=== PATIENT | female | born 2000 | race Caucasian/White ===

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

== ENCOUNTER → 2021-01-05 12:04 | Outpatient (BNVA) | payer OTHER, MEDICAID, SELFPAY | PROVIDERS: PCP Pediatrics; Visit Provider Obstetrics & Gynecology ==

== ENCOUNTER 2021-03-18 19:03 | Emergency (ER) | payer OTHER, MEDICAID, SELFPAY ==
[2021-03-18 19:17] VITALS: BP 119/60; PULSE 81; RESP 16; TEMP 37; O2SAT 100; BMI 26.0
== END 2021-03-18 21:36 | disposition left against medical advice (07) ==
PROVIDERS: Emergency Provider Emergency Medicine; PCP Pediatrics
DX: R10.11 Right upper quadrant pain (principal); N93.9 Abnormal uterine and vaginal bleeding, unspecified
CPT/HCPCS: 99281; 99282

== ENCOUNTER 2021-03-19 09:02 | Emergency (ER) | payer OTHER, MEDICAID, SELFPAY ==
[2021-03-19 09:58] VITALS: BP 106/60; PULSE 66; RESP 14; TEMP 36.4; O2SAT 100; BMI 26.0
--- NOTE | 2021-03-19 10:37 | ED_ITS ---
HPI - Abdominal Pain General Chief Complaint: Abdominal Pain Stated Complaint: pain on left side Time Seen by Provider: 03/19/21 10:37 Source: patient Mode of arrival: ambulatory Limitations: no limitations History of Present Illness HPI narrative: Patient noticed pain in the right flank area for last 2 days since yesterday noticed vaginal bleeding her last menstrual period was 2 weeks ago denies any pelvic pain no urinary complaints no fever or chills no history of kidney stone Related Data Previous Rx's Medication Instructions Recorded metronidazole 500 mg tablet 500 mg PO BID 7 Days #14 tab 12/31/20 Allergies Allergy/AdvReac Type Severity Reaction Status Date / Time No Known Allergies Allergy Unverified 01/05/21 12:05 [No Known Allergies*] Review of Systems Review of Systems Constitutional : No Weight loss, No Fever, No Chills ENT/Mouth : No sore throat, No Rhinorrhea Eyes: No Eye Pain, No Swelling Cardiovascular : No Chest Pain, no palpitations Respiratory : No Cough, No Sputum, no shortness of breath Gastrointestinal : no Nausea, No Vomiting, No Diarrhea, No abdominal Pain, no black stools Genitourinary : No Dysuria, No Urinary Frequency Musculoskeletal : No joint pain, No Myalgias, No Joint Swelling Skin : No Skin Lesions, No rash Neuro : No Weakness, No Numbness, No Dizziness, No Headache Psych : No Anxiety/Panic, No Depression Heme/Lymph: No Bruising, No Lymphadenopathy Endocrine : No Polyuria, No Polydipsia All other systems reviewed and are negative Physical Exam Vital Signs: Vital Signs: Last Vital Signs Temp 97.5 F 03/19/21 09:58 Pulse 66 03/19/21 09:58 Resp 14 03/19/21 09:58 BP 106/60 03/19/21 09:58 Pulse Ox 100 03/19/21 09:58 Body Mass Index 26.0 Appearance: Alert. Oriented X3. No acute distress. Eyes: PERRLA, No Nystagmus ENT: Pharynx normal. Oral Mucosa moist Neck: Normal inspection. Neck supple. CVS: Normal heart rate and rhythm. Pulses normal. Respiratory: No respiratory distress. Equal air entry bilateral, no wheezing/rales/rhonchi Abdomen: Soft and nontender. Bowel sounds are present, no mass palpable, mild right CVA tenderness Skin: Skin warm and dry. Normal skin color. Normal skin turgor. Extremities: No lower extremity edema. No calf tenderness Neuro: Oriented X 3. No motor deficit. No sensory deficit.No cerebellar signs , cranial nerves II-XII intact MDM - Abdominal Pain MDM Narrative Medical decision making narrative: Patient nonspecific mild right flank pain eating fine in the ER urine negative except for your few wbc's nitrite negative discharge patient home likely musculoskeletal Lab Data Attestation: I reviewed the patient's lab results. Labs: Lab Results 03/19/21 03/19/21 Range/Units 11:46 11:46 Urine Color YELLOW Urine Appearance HAZY Urine pH 6.0 (5.0-8.0) Ur Specific [place] >= 1.030 H (1.005-1.025) Urine Protein NEG (NEG-TRACE) MG/DL Urine Glucose (UA) NEG (NEG) MG/DL Urine Ketones NEG (NEG) MG/DL Urine Blood NEG (NEG) Urine Nitrite NEG (NEG) Ur Leukocyte Esterase 1+ H (NEG) Urine RBC 0 (0) /HPF Urine WBC 1-4 (0-4) /HPF Ur Squamous Epith Cells 2+ /LPF Urine Bacteria 1+ /LPF Urine Mucus 2+ /LPF Urine Test NEGATIVE (NEGATIVE) Discharge Plan Discharge Prescriptions: No Action metronidazole [Flagyl] 500 mg tablet 500 mg PO BID 7 Days Qty: 14 RF: 0 PMFSH Social History Social History Alcohol intake: never Smoking Status: Never smoker Advance Directives: Yes Advance Directives Information Provided: No Advance Directives on File: No Patient : No Gender identity: female
[2021-03-19 11:54] LABS: Glucose Urine UA NEG (NEG); Leukocyte Esterase Urine 1+ (NEG); Nitrite Urine NEG (NEG); Specific Gravity - Urine >= 1.030 (1.005-1.025); UACC Culture Trigger YES; Urine Blood NEG (NEG); Urine Ketones NEG (NEG); Urine Protein NEG (NEG-TRACE)
[2021-03-19 11:55] LABS: Appearance Urine HAZY; Color Urine YELLOW
[2021-03-19 11:56] LABS: UPreg QC Valid YES; Urine Pregnancy NEGATIVE (NEGATIVE)
[2021-03-19 12:03] LABS: Bacteria Urine 1+ /LPF; Mucus Urine 2+ /LPF; RBC Urine 0 /HPF (0); Squamous Epithelial Cell Urine 2+ /LPF
== END 2021-03-19 13:11 | disposition home or self-care (01) ==
PROVIDERS: Emergency Provider Internal Medicine; PCP Pediatrics
DX: R10.9 Unspecified abdominal pain (principal); Z79.899 Other long term (current) drug therapy
CPT/HCPCS: 81001; 81003; 81025; 87086; 99284

== ENCOUNTER → 2021-04-15 08:57 | Outpatient (BNVA) | payer OTHER, MEDICAID, SELFPAY | PROVIDERS: Visit Provider Advanced Practice Midwife | DX: Z32.01 Encounter for pregnancy test, result positive (principal) | CPT/HCPCS: 81025; 99212 ==

== ENCOUNTER 2021-05-04 23:16 | Observation (INO) | payer OTHER, MEDICAID, SELFPAY ==
--- NOTE | ~2021-05-04 | US_ITS ---
EXAMINATION: US OBSTETRICAL ULTRASOUND CLINICAL INFORMATION: 8 weeks . Left lower quadrant pain. Rule out ectopic. COMPARISON: None. LMP: 02/06/2021. Gestational age by maternal dates is 12 weeks 4 days. Estimated date of delivery by maternal dates is 11/13/2021. TECHNIQUE: Transabdominal sonographic evaluation of the pelvis. FINDINGS: There is a single intrauterine gestational sac with visible yolk sac, embryo/fetus, and cardiac activity. There is no significant subchorionic hemorrhage or hematoma. HR: 163 beats per minute. CRL (crown rump length): 1.78 cm (8 weeks 2 days +/- 4 days). ANDREW (estimated date of delivery): 12/13/2021 +/- 4 days. MATERNAL ADNEXA: The right maternal ovary measures 1.9 x 1.6 x 1.4 cm. The left maternal ovary measures 2.5 x 1.7 x 2.1 cm. There is no significant maternal adnexal mass. No maternal pelvic ascites. US/US OB <= 14 weeks fetus IMPRESSION: 1. Single intrauterine gestation with ultrasound gestational age of 8 weeks 2 days +/- 4 days. 2. Estimated date of delivery is 12/13/2021 +/- 4 days. 3. No maternal adnexal mass or pelvic ascites.
[2021-05-04 23:17] VITALS: BP 106/57; PULSE 78; RESP 18; TEMP 37.1; O2SAT 100; BMI 26.4
[2021-05-04 23:33] LABS: Glucose Urine UA NEG (NEG); Leukocyte Esterase Urine 1+ (NEG); Nitrite Urine NEG (NEG); Specific Gravity - Urine 1.015 (1.005-1.025); UACC Culture Trigger YES; Urine Blood TRACE (NEG); Urine Ketones 15 MG/DL (NEG); Urine Protein NEG (NEG-TRACE)
[2021-05-04 23:34] LABS: Appearance Urine CLEAR; Color Urine YELLOW
[2021-05-04 23:39] LABS: Bacteria Urine TRACE /LPF; Mucus Urine 1+ /LPF; Squamous Epithelial Cell Urine 2+ /LPF; WBC Urine 0-2 /HPF (0-4)
--- NOTE | 2021-05-05 01:03 | ED.GENADULT ---
HPI - General Adult General Chief complaint: Nausea/Vomiting/Diarrhea Stated complaint: Vomiting Time Seen by Provider: 05/05/21 00:47 Source: patient Mode of arrival: ambulatory Limitations: no limitations History of Present Illness HPI narrative: 20-year-old female, G1, P0, LMP 02/06/2021, EDC 12/13/2021 of pain and she points to her left lower quadrant when asked to localize the pain. She describes the pain as a constant, pounding sensation which is 8/10 at its worst. She denied fever, chills, chest pain, shortness of breath, frequency, urgency or dysuria. She denies vaginal bleeding or vaginal discharge. She states she did have 1 OBGYN appointment at [facility] and she was told that her due date was 12/13/2021 which would make her 8 weeks however based on her LMP of 02/06/2021 she would be 12 weeks . Patient states that she was seen at [facility] yesterday but did not have any testing. She states that she did take her mother's Zofran translingually today with no relief of her symptoms. Related Data Previous Rx's Medication Instructions Recorded ibuprofen 600 mg PO Q6H PRN #20 tab 03/19/21 [id number] acid-B6 1 ea PO . daily 90 Days #90 ea 05/05/21 [Citranatal B-Calm (Fe Gluc)] promethazine 25 mg KS Q6H PRN #20 ea 05/05/21 Allergies Allergy/AdvReac Type Severity Reaction Status Date / Time No Known Allergies Allergy Verified 05/04/21 23:17 [No Known Allergies*] Review of Systems Review of Systems: Yes all other systems are reviewed and are negative Neurologic: Reports Abnormal speech present [facility] Past Medical History [facility] Narrative: Past medical history: Low blood pressure. Past surgical history: None. Social history: Patient denies tobacco, alcohol and drug use. Social History Social History (Updated 04/15/21 @ 09:05 by Chantel Juarez [facility]) Alcohol intake: never Patient Tobacco Use Status: Never used Tobacco Advance Directives: No Advance Directives Information Provided: No Patient : Yes Gender identity: female Physical Exam Vital Signs: Vital Signs: Last Vital Signs Temp 98.7 F 05/04/21 23:17 Pulse 78 05/04/21 23:17 Resp 18 05/04/21 23:17 BP 106/57 L 05/04/21 23:17 Pulse Ox 100 05/04/21 23:17 Body Mass Index 26.4 Const: Other: Very pleasant and cooperative female, she does not appear to be in any distress, she answers all questions appropriately. HENMT: Head: Yes normal to inspection, Yes normocephalic and Yes atraumatic Ears: external ears normal General nose exam: Normal external nose present Face and sinus: Yes normal facial exam Mouth: Normal oral and palatal mucosa present Throat: Yes posterior oropharynx normal Eyes: Periorbital: periorbital findings normal Eyelids: Yes eyelids normal Conjunctivae: conjunctivae normal Sclerae: sclerae normal Corneas: corneas normal Pupils: Equal, round and reactive pupils present Direct Ophthalmoscopy: normal light reflex Neck: Neck: Yes full ROM, Yes no lymphadenopathy, Yes no meningeal signs, Yes trachea midline and Yes supple Chest: Chest palpation & inspection: normal inspection of the chest and normal palpation of entire chest wall Resp: Effort & Inspection: normal respiratory effort and able to speak in complete sentences Auscultation: clear to auscultation bilaterally Cardio: Rate: regular rate Rhythm: regular rhythm Heart sounds: S1 normal heart sound present, S2 normal heart sound present and no murmurs GI: Inspection: Yes normal to inspection Palpation (GI): Soft to palpation, nontender, no guarding, not rigid and No hepatosplenomegaly present : General: Yes no CVA tenderness Back/Spine/Pelvis: Back: no CVA tenderness Cervical Spine: normal cervical lordosis Thoracic/Lumbar Spine: thoracic and lumbar spine normal to inspection Skin: Lesions: no lesions Rashes: no rashes Wounds: no wounds Neuro: General: no meningeal signs Cranial nerves: Yes Equal, round and reactive pupils present Cognition (Neuro): normal cognition Speech: Abnormal speech present Motor exam (neuro): 5/5 motor strength present throughout Extrem: General: Yes normal to inspection and Yes full ROM Psych: Appearance: well kempt Mental Status: mental status grossly normal Speech and movement: Normal speech and movement present Affect: normal affect Attitude: cooperative Thought process: Normal thought process present Thought content: Normal thought content present Course Course Course Narrative: 20-year-old female who was 8-12 weeks who presents emergency department for evaluation 2 weeks nausea and vomiting with 20 episodes of emesis per day and left lower quadrant abdominal pain. Physical examination did reveal left lower quadrant tenderness otherwise was unremarkable. I ordered a CBC, CMP, quantitative beta HCG, urinalysis, ABO. Patient was ordered to get Reglan 10 mg IV, Benadryl 25 mg IV and normal saline x1 L. 0214: The patient only got minimal relief of her nausea with the 1st L of normal saline IV, Reglan and Benadryl IV. Therefore I ordered Phenergan 12.5 mg IV and a 2nd L of normal saline IV. Her laboratory evaluation revealed a normocytic anemia with an H&H of 11.3 and 31.8 .LFTs were normal. Urinalysis was unremarkable. Blood type was O-positive Quantitative beta-hCG is pending and her pelvic ultrasound studies are pending. At the end of my shift, patient's care was turned over to my colleague, Dr. Anat Rocha. Medical Decision Making Lab Data Result diagrams: 05/05/21 01:18 05/05/21 01:18 Labs: Lab Results 05/04/21 05/05/21 05/05/21 Range/Units 23:24 01:18 01:18 WBC 6.6 (4.8-10.8) X10*3/uL RBC 3.57 L (4.20-5.50) X10*6/uL Hgb 11.3 L (12.0-16.0) g/dl Hct 31.8 L (37-47) % MCV 89.1 (80-98) fL MCH 31.7 (27.0-33.0) pg MCHC 35.5 H (31.0-35.0) g/dl RDW 11.9 (11.0-16.0) % Plt Count 209 (160-400) X10*3/uL MPV 8.7 L (9.4-12.3) fL Immature Gran % (Auto) 0.3 (0.0-0.4) % Neut % (Auto) 75.0 H (45-73) % Lymph % (Auto) 12.0 L (20-40) % Smith % (Auto) 11.0 (2-11) % Eos % (Auto) 1.5 (0-4) % Baso % (Auto) 0.2 (0-2) % Lymph # (Auto) 0.8 L (1.2-4.9) X10*3/uL Smith # (Auto) 0.7 (0.1-1.2) X10*3/uL Eos # (Auto) 0.1 (0.0-0.4) X10*3/uL Baso # (Auto) 0.0 (0.0-0.2) X10*3/uL Abs Immat Gran (auto) 0.02 (0.00-0.03) X10*3/uL Absolute Neuts (auto) 5.0 (2.0-8.3) X10*3/uL Absolute Nucleated RBC 0.000 (0.0-0.012) X10*3/uL Nucleated RBC % (auto) 0.0 (0.0-0.2) /100WBC Sodium 139 (135-145) mmol/L Potassium 4.1 (3.3-5.1) mmol/L Chloride 107 (96-108) mmol/L Carbon Dioxide 21 L (22-29) mmol/L Anion Gap 15 (12-20) BUN 9 (9-16) mg/dL Creatinine 0.77 (0.5-1.4) mg/dL Estim Creat Clear Calc 100.3 Estimated GFR > 60 Random Glucose 82 (60-115) mg/dL Calcium 9.2 (8.4-10.2) mg/dL Total Bilirubin 0.6 (0.0-1.0) mg/dL AST 25 (5-31) U/L ALT 31 (0-31) U/L Alkaline Phosphatase 60 (39-117) U/L Total Protein 6.8 (6.5-8.0) g/dL Albumin 4.1 (3.5-5.0) g/dL Lipase 20 (8-78) U/L Urine Color YELLOW Urine Appearance CLEAR Urine pH 6.0 (5.0-8.0) Ur Specific [place] 1.015 (1.005-1.025) Urine Protein NEG (NEG-TRACE) MG/DL Urine Glucose (UA) NEG (NEG) MG/DL Urine Ketones 15 (NEG) MG/DL Urine Blood TRACE (NEG) Urine Nitrite NEG (NEG) Ur Leukocyte Esterase 1+ H (NEG) Urine RBC 1-4 (0) /HPF Urine WBC 0-2 (0-4) /HPF Ur Squamous Epith Cells 2+ /LPF Urine Bacteria TRACE /LPF Urine Mucus 1+ /LPF Blood Type 05/05/21 Range/Units 01:18 WBC (4.8-10.8) X10*3/uL RBC (4.20-5.50) X10*6/uL Hgb (12.0-16.0) g/dl Hct (37-47) % MCV (80-98) fL MCH (27.0-33.0) pg MCHC (31.0-35.0) g/dl RDW (11.0-16.0) % Plt Count (160-400) X10*3/uL MPV (9.4-12.3) fL Immature Gran % (Auto) (0.0-0.4) % Neut % (Auto) (45-73) % Lymph % (Auto) (20-40) % Smith % (Auto) (2-11) % Eos % (Auto) (0-4) % Baso % (Auto) (0-2) % Lymph # (Auto) (1.2-4.9) X10*3/uL Smith # (Auto) (0.1-1.2) X10*3/uL Eos # (Auto) (0.0-0.4) X10*3/uL Baso # (Auto) (0.0-0.2) X10*3/uL Abs Immat Gran (auto) (0.00-0.03) X10*3/uL Absolute Neuts (auto) (2.0-8.3) X10*3/uL Absolute Nucleated RBC (0.0-0.012) X10*3/uL Nucleated RBC % (auto) (0.0-0.2) /100WBC Sodium (135-145) mmol/L Potassium (3.3-5.1) mmol/L Chloride (96-108) mmol/L Carbon Dioxide (22-29) mmol/L Anion Gap (12-20) BUN (9-16) mg/dL Creatinine (0.5-1.4) mg/dL Estim Creat Clear Calc Estimated GFR Random Glucose (60-115) mg/dL Calcium (8.4-10.2) mg/dL Total Bilirubin (0.0-1.0) mg/dL AST (5-31) U/L ALT (0-31) U/L Alkaline Phosphatase (39-117) U/L Total Protein (6.5-8.0) g/dL Albumin (3.5-5.0) g/dL Lipase (8-78) U/L Urine Color Urine Appearance Urine pH (5.0-8.0) Ur Specific [place] (1.005-1.025) Urine Protein (NEG-TRACE) MG/DL Urine Glucose (UA) (NEG) MG/DL Urine Ketones (NEG) MG/DL Urine Blood (NEG) Urine Nitrite (NEG) Ur Leukocyte Esterase (NEG) Urine RBC (0) /HPF Urine WBC (0-4) /HPF Ur Squamous Epith Cells /LPF Urine Bacteria /LPF Urine Mucus /LPF Blood Type O Positive Discharge Plan Discharge Clinical Impression: Excessive vomiting Abdominal pain during Qualifiers: Trimester: first trimester Qualified Code(s): O26.891 - Other specified related conditions, first trimester Patient Disposition: Home, Self-Care Instructions: Hyperemesis Gravidarum (ED) Additional Instructions: Use Phenergan suppositories 25 mg, 1 suppository per rectum every 6 hours as needed for nausea and vomiting. Take vitamins daily. Follow-up with your OBGYN doctor in 2 days. Please return to the emergency department if your symptoms get worse or if you develop any symptoms that are concerning to you. Prescriptions: New promethazine 25 mg suppository 25 mg KS Q6H PRN (Reason: nausea and vomiting) Qty: 20 RF: 0 Citranatal B-Calm (Fe Gluc) 20 mg iron-1 mg -25 mg/25 mg tablets, sequential 1 ea PO . daily 90 Days Qty: 90 RF: 0 No Action ibuprofen 600 mg tablet 600 mg PO Q6H PRN (Reason: pain) Qty: 20 RF: 0
[2021-05-05 01:25] LABS: MANUAL DIFF FLAG NO
[2021-05-05] MEDS: diphenhydrAMINE HCL 50 MG/ML VIAL 25 MG IVPUSH (01:28)
[2021-05-05] MEDS: 0.9 % Sodium Chloride 1,000 ML 999 ML IV ×2 (01:28→02:19)
[2021-05-05 01:30] LABS: Basophils Percent Auto 0.2 % (0-2); Eosinophils Absolute Auto 0.1 X10*3/uL (0.0-0.4); Eosinophils Percent Auto 1.5 % (0-4); Hematocrit 31.8 % (37-47); Hemoglobin 11.3 g/dl (12.0-16.0); Imm Gran Abs Auto 0.02 X10*3/uL (0.00-0.03); Imm Gran Pct Auto 0.3 % (0.0-0.4); Lymphocytes Absolute Auto 0.8 X10*3/uL (1.2-4.9); Mean Corpuscular HGB Conc 35.5 g/dl (31.0-35.0); Mean Corpuscular Hemoglobin 31.7 pg (27.0-33.0); Mean Corpuscular Volume 89.1 fL (80-98); Mean Platelet Volume 8.7 fL (9.4-12.3); Monocytes Absolute Auto 0.7 X10*3/uL (0.1-1.2); Platelet Count 209 X10*3/uL (160-400); Red Blood Count 3.57 X10*6/uL (4.20-5.50); Red Cell Distribution Width 11.9 % (11.0-16.0); White Blood Count 6.6 X10*3/uL (4.8-10.8)
[2021-05-05] MEDS: Metoclopramide HCl 10 MG/2 ML VIAL IVPUSH ×2 (01:30→15:48)
[2021-05-05 01:47] LABS: Alanine Aminotransferase 31 U/L (0-31); Albumin Level 4.1 g/dL (3.5-5.0); Alkaline Phosphatase 60 U/L (39-117); Anion Gap 15 (12-20); Aspartate Amino Transferase 25 U/L (5-31); Bilirubin Total 0.6 mg/dL (0.0-1.0); Blood Urea Nitrogen 9 mg/dL (9-16); Calcium 9.2 mg/dL (8.4-10.2); Carbon Dioxide 21 mmol/L (22-29); Chloride 107 mmol/L (96-108); Creatinine Clr Calc Pharmacy 100.3; Estimated Glomerular Filt Rate > 60; Glucose Random 82 mg/dL (60-115); Lipase 20 U/L (8-78); Potassium 4.1 mmol/L (3.3-5.1); Sodium 139 mmol/L (135-145); Total Protein 6.8 g/dL (6.5-8.0)
[2021-05-05] MEDS: ondansetron HCL 4 MG/2 ML VIAL IVPUSH ×3 (05:20→21:19)
[2021-05-05] MEDS: Nitrofurantoin Monohyd/M-Cryst 100 MG CAPSULE PO (05:21)
--- NOTE | 2021-05-05 05:45 | PC.NURSE ---
pt failed PO challenge. MD notified plan of care is to admit patient pt aware of plan of care for admission. no questions or concerns at this time.
[2021-05-05] MEDS: cefTRIAXone sodium 1 GM in 0.9 % Sodium Chloride 50 ML IV (05:49)
[2021-05-05 06:35] VITALS: BP 115/69; PULSE 66; RESP 14; O2SAT 98
[2021-05-05 07:05] LABS: COVID-19 Test Negative (Negative); IDNOW Serial# 9DD0AD1C
[2021-05-05 08:00] VITALS: BP 107/55; PULSE 63; RESP 16; O2SAT 99
--- NOTE | 2021-05-05 09:22 | PC.NURSE ---
PT SEEN BY HOSPITALIST, HOW REPORTED PT HAD VOMITED, AND IV WAS BOTHERING HER. IV CHECKED FLUSHES WELL WITH NO PAIN, AND HAS A SMALL BLOOD RETURN. PT WAS COMFORTABLE WITH KEEPING IT IT WAS AND EASY FLUSH WITH NO DISCOMFORT.
--- NOTE | 2021-05-05 09:31 | P.HPHOSP_ITS ---
History of Present Illness Date of Service: 05/05/21 Chief Complaint: nausea and vomiting This 20 yo F (reports LMP 02/06 -- but OB note from 04/15 documents 03/08) who presents to the hospital with complaints of bilateral lower quadrant pain and vomiting. She reports that over the last several days she has had nausea with vomiting (non-bloody/non-bilious) with subsequent abdominal soreness. She denies any fevers or chills. She denies any diarrhea. She endorses that no one else has similar symptoms. She denies any vaginal bleeding or discharge. She denies any urinary frequency /urgency. Denies any dysuria. She denies any marijuana use. She reports that she is getting her Ob care at [facility] [place]. In the ED, she underwent basic work up including cbc, bmp, ua, ultrasound. Her CBC revealed mild anemia, her chem was basically within normal limits. UA showed trace bacteria. Her ultrasound revealed a single intrauterine with EGA 8weeks 2 days +/- 4 days. ANDREW by ultrasound was 12/13/2021 +/- 4 days. She was given multiple rounds to antiemetics and IVF without improvement in her symptoms. She failed her PO challenged and will be subsequently admitted for further management. Review of Systems Review of Systems: General - denies fevers or chills, denies weakness or fatigue HEENT -denies blurred vision, denies headache, denies sore throat Cardiovascular - denies chest pain or palpitations, denies edema Respiratory - denies shortness of breath, coughing, wheezing Gastrointestinal - +nausea/vomiting, denies diarrhea - denies flank pain, denies dysuria, denies frequency or urgency Musculoskeletal - denies back pain, denies hip pain, denies knee pain, denies shoulder pain Neurological - denies any focal weakness or numbness Skin, denies any bruising or redness Psychiatric - denies any suicidal ideation, hallucinations, homicidal ideation Endocrinology - denies intolerance to hot / cold temperatures [facility] Social History (Updated 04/15/21 @ 09:05 by Chantel Juarez, [facility]) Alcohol intake: never Patient Tobacco Use Status: Never used Tobacco Advance Directives: No Advance Directives Information Provided: No Patient : Yes Gender identity: female Meds Allergies Allergy/AdvReac Type Severity Reaction Status Date / Time No Known Allergies Allergy Verified 05/04/21 23:17 [No Known Allergies*] Active Medications: Current Medications Generic Name Dose Route Start Last Admin Trade Name Freq PRN Reason Stop Dose Admin Dextrose/Sodium Chloride 1,000 mls @ 100 mls/hr 05/05/21 09:30 D51/2ns IVCONT .Q10H LUIS ALFREDO Ondansetron HCl 4 mg 05/05/21 09:25 Ondansetron Hcl 4 Mg/2 Ml Vial IVPUSH Q8H PRN Nausea and Vomiting Sodium Chloride 3 ml 05/05/21 16:00 0.9 % Sodium Chloride Flush 3 Ml Syringe IVFLUSH QSHIFT LUIS ALFREDO Physical Exam Vital Signs and Narrative: Vital Signs: Last Vital Signs Temp 98.7 F 05/04/21 23:17 Pulse 63 05/05/21 08:00 Resp 16 05/05/21 08:00 BP 107/55 L 05/05/21 08:00 Pulse Ox 99 05/05/21 08:00 Body Mass Index 26.4 Const: Other: Constitutional - Awake and Alert, No apparent distress Eyes - PERRLA, EOMI Cardiovascular - S1S2, RRR, No edema Respiratory - Normal lung expansion, Normal respiratory effort, No respiratory distress, CTA bilaterally Gastrointestinal - NT / ND; +BS; No rebound or guarding - No CVA tenderness Extremities - no calf tenderness bilaterally, no swelling Musculoskeletal - Normal inspection, normal ROM Skin - Warm/Dry Neurological - Alert & oriented x3, No focal deficit Psychological - Appropriate affect Results Labs CBC and Chem 7: 05/05/21 01:18 05/05/21 01:18 Labs: Laboratory Results - last 24 hr 05/04/21 05/05/21 05/05/21 23:24 01:18 01:18 MCV 89.1 MCH 31.7 MCHC 35.5 H RDW 11.9 Plt Count 209 MPV 8.7 L Immature Gran % (Auto) 0.3 Neut % (Auto) 75.0 H Lymph % (Auto) 12.0 L [place] % (Auto) 11.0 Eos % (Auto) 1.5 Baso % (Auto) 0.2 Lymph # (Auto) 0.8 L [place] # (Auto) 0.7 Eos # (Auto) 0.1 Baso # (Auto) 0.0 Abs Immat Gran (auto) 0.02 Absolute Neuts (auto) 5.0 Absolute Nucleated RBC 0.000 Nucleated RBC % (auto) 0.0 Anion Gap 15 Estim Creat Clear Calc 100.3 Estimated GFR > 60 Random Glucose 82 Calcium 9.2 Total Bilirubin 0.6 AST 25 ALT 31 Alkaline Phosphatase 60 Total Protein 6.8 Albumin 4.1 Lipase 20 Beta HCG, Quant [id number] Urine Color YELLOW Urine Appearance CLEAR Urine pH 6.0 Ur Specific [place] 1.015 Urine Protein NEG Urine Glucose (UA) NEG Urine Ketones 15 Urine Blood TRACE Urine Nitrite NEG Ur Leukocyte Esterase 1+ H Urine RBC 1-4 Urine WBC 0-2 Ur Squamous Epith Cells 2+ Urine Bacteria TRACE Urine Mucus 1+ COVID-19 (TOY) COVID-19 Clin Com Blood Type 05/05/21 05/05/21 01:18 06:44 MCV MCH MCHC RDW Plt Count MPV Immature Gran % (Auto) Neut % (Auto) Lymph % (Auto) [place] % (Auto) Eos % (Auto) Baso % (Auto) Lymph # (Auto) [place] # (Auto) Eos # (Auto) Baso # (Auto) Abs Immat Gran (auto) Absolute Neuts (auto) Absolute Nucleated RBC Nucleated RBC % (auto) Anion Gap Estim Creat Clear Calc Estimated GFR Random Glucose Calcium Total Bilirubin AST ALT Alkaline Phosphatase Total Protein Albumin Lipase Beta HCG, Quant Urine Color Urine Appearance Urine pH Ur Specific [place] Urine Protein Urine Glucose (UA) Urine Ketones Urine Blood Urine Nitrite Ur Leukocyte Esterase Urine RBC Urine WBC Ur Squamous Epith Cells Urine Bacteria Urine Mucus COVID-19 (TOY) Negative COVID-19 Clin Com See Note Blood Type O Positive Imaging Radiologist's Impressions: Impressions Ultrasound 05/05/21 01:01 IMPRESSION: 1. Single intrauterine gestation with ultrasound gestational age of 8 weeks 2 days +/- 4 days. 2. Estimated date of delivery is 12/13/2021 +/- 4 days. 3. No maternal adnexal mass or pelvic ascites. Assessment and Plan (1) Excessive vomiting: Status: Acute This is a 20 yo F who presented to the ED with complaints of nausea and vomiting with subsequent abdominal pain. She has failed her PO challenge and is admitted for further treatment. 1. Nausea and vomiting ? hyperemesis antiemetics IVF clear liquids monitor lytes, check phos now consult Ob for any input they can offer 2. First Trimester preganancy EGA 8w2d by first trimester ultrasound vitamins outpatient routine care Full Code DVT pptx, Low Risk Quality Stroke Does the patient have a stroke diagnosis?: No VTE Prior VTE?: No VTE Risk Level:: Medical - low VTE Device Contraindication: Treatment Not Indicated VTE Drug Contraindication: Treatment Not Indicated
[2021-05-05] MEDS: Dextrose 5 % and 0.45 % NaCl 1,000 ML 100 ML IVCONT (09:42)
[2021-05-05 10:05] LABS: Phosphorus 4.6 mg/dL (2.7-4.5)
--- NOTE | 2021-05-05 10:15 | P.HPOB_ITS ---
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 the following workup was done emergency, hematocrit of 31.2, chemistry including liver function tests, electrolytes are within normal, UA showed bacteria was +1 leukocyte esterase negative nitrite, urine culture was sent still pending. Ob ultrasound showed the followin. Single intrauterine gestation with ultrasound gestational age of 8 weeks 2 days +/- 4 days. 2. Estimated date of delivery is 12/13/2021 +/- 4 days. 3. No maternal adnexal mass or pelvic ascites. The patient was given IV hydration and Zofran, and failed a p.o. 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 Review of Systems ROS Unobtainable: All systems reviewed & are unremarkable except as noted in HPI and below Cardiovascular: Denies Palpatations, Loss of consciousness and Chest pain Respiratory: Denies Cough, Wheezing and Shortness of breath Musculoskeletal: Denies Low back pain Gastrointestinal: Denies Heartburn, Constipation, Diarrhea, Nausea and Vomiting Genitourinary: Denies Pain with urination, Burning with urination and Urinary frequency Neurological: Denies Migranes Psychological: Denies Depression OB [facility] Social History Social History Alcohol intake: never Patient Tobacco Use Status: Never used Tobacco Advance Directives: No Advance Directives Information Provided: No Patient : Yes Gender identity: female Meds Allergies Allergy/AdvReac Type Severity Reaction Status Date / Time No Known Allergies Allergy Verified 05/04/21 23:17 [No Known Allergies*] Active Medications: Current Medications Generic Name Dose Route Start Last Admin Trade Name Freq PRN Reason Stop Dose Admin Dextrose/Sodium Chloride 1,000 mls @ 100 mls/hr 05/05/21 09:30 05/05/21 09:42 D51/2ns IVCONT 100 mls/hr .Q10H LUIS ALFREDO Administration Ondansetron HCl 4 mg 05/05/21 09:25 Ondansetron Hcl 4 Mg/2 Ml Vial IVPUSH Q8H PRN Nausea and Vomiting Sodium Chloride 3 ml 05/05/21 16:00 0.9 % Sodium Chloride Flush 3 Ml Syringe IVFLUSH QSHIFT [facility] Home Medications Medication Instructions Recorded Confirmed Last Taken Type PNV,calcium 23-drfg-dweiy acid 1 tab PO DAILY 05/05/21 05/05/21 Unknown History [WesTab Plus] nitrofurantoin monohyd/m-cryst 1 cap PO BID 05/05/21 05/05/21 Unknown History 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 MACHINE OPERATOR Physical Exam Vitals Vital signs: Temp Pulse Resp BP Pulse Ox 98.7 F 63 16 107/55 L 99 05/04/21 23:17 05/05/21 08:00 05/05/21 08:00 05/05/21 08:00 05/05/21 08:00 Body Mass Index 26.4 Constitutional General Appearance: Healthy appearing, Well-nourished and Well-developed Psychiatric Mood and Affect: active and alert, normal mood and normal affect Skin Appearance: No rashes and No lesions Lungs Respiratory Effort: No intercostal retractions Auscultation: Clear to auscultation Cardiovascular Auscultation: RRR Abdomen Auscultation/Inspection/Palpation: Normal bowel sounds, Soft, Non-distended and No tenderness Female Genitalia (Pelvic) Exam: Deferred 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 MACHINE OPERATOR - Results Labs CBC & Chem 7: 05/05/21 01:18 05/05/21 01:18 Labs: Short CBC 05/05/21 Range/Units 01:18 WBC 6.6 (4.8-10.8) X10*3/uL Hgb 11.3 L (12.0-16.0) g/dl Hct 31.8 L (37-47) % Plt Count 209 (160-400) X10*3/uL BMP 05/05/21 01:18 Sodium 139 Potassium 4.1 Chloride 107 Carbon Dioxide 21 L BUN 9 Creatinine 0.77 Calcium 9.2 Liver Function 05/05/21 Range/Units 01:18 Total Bilirubin 0.6 (0.0-1.0) mg/dL AST 25 (5-31) U/L ALT 31 (0-31) U/L Alkaline Phosphatase 60 (39-117) U/L Albumin 4.1 (3.5-5.0) g/dL Urine 05/04/21 Range/Units 23:24 Urine Color YELLOW Urine Appearance CLEAR Urine pH 6.0 (5.0-8.0) Ur Specific [place] 1.015 (1.005-1.025) Urine Protein NEG (NEG-TRACE) MG/DL Urine Glucose (UA) NEG (NEG) MG/DL Assessment and Plan (1) Hyperemesis gravidarum: Status: Acute TSH, compression devices when in bed, D5 LR IV fluids , urine dip Q void till ketones clear, and IV Pepcid 20 mg . b.i.d., Treat nausea and vomiting with any of the following antiemetics: eiher Zofran 4 mg IV q.8 p.r.n., Reglan 10 mg IV q.8 p.r.n., or Compazine 5-10 mg IV Q 6-8 p.r.n. , or Phenergan 25 mg MN or IM q.4 hours p.r.n. if unable to control nausea and vomiting with any of the above antiemetics consider glucocorticoids treatment with methylprednisolone 60 mg IV q.8 hours for 48 hours or hydrocortisone 100 mg IV q.12 hours for 48 hours, then taper with prednisone 40 mg p.o. Q 1 day followed by 20 mg p.o. q.d. for 3 days followed by 10 mg p.o. q.d. for 3 days then 5 mg p.o. q.d. for 7 days. if the patient nausea and vomiting is controlled with IV antiemetics consider switching to the same p.o. antiemetic and discharge the patient home on the same medication , to be followed -up in our office. vitamin 1 tablet p.o. q.d. once the patient is tolerating p.o. diet Quality Measures - 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 MACHINE OPERATOR H&P VTE Prior VTE?: No VTE Risk Level:: Medical - low VTE Device Contraindication: Treatment Not Indicated VTE Drug Contraindication: Treatment Not Indicated
--- NOTE | 2021-05-05 10:17 | PC.NURSE ---
Report given to grant hendrickson
[2021-05-05 10:48] VITALS: BP 118/58; PULSE 60; RESP 17; TEMP 36.4; O2SAT 100
--- NOTE | 2021-05-05 10:55 | PHA.MEDREC ---
Pharmacy Consult ? Medication Reconciliation Pharmacy has completed the medication reconciliation. Spoke with patient in the ED regarding home medications.
[2021-05-05] MEDS: Dextrose 5 % and Lactated Ring 1,000 ML 100 ML IVCONT ×2 (11:42→21:19)
--- NOTE | 2021-05-05 14:55 | MHC.CM.PN ---
nurse skin care technician note [employer] medical record reviewed along with case discussed with staff nurse, met with patient and explained the role of the nurse skin care technician in the transition from hospital to HOME., patient has been placed on observation status , this was explained to her and LEFTf aT BEDSIDE FOR FURTHER REVIEW WITH ATTACHED NAME CARD AND HOW TO REACH CASE MANAGEMENT, PATIENT CAME IN WITH 2 WEEKS HISTORY OF NAUSEA , EMESIS DIAGNOSED WITH HYPER EMESIS, SHE IS 8 WEEK 4 DAYS PER ULTRASOUND AND CHART DOCUMENTATION ,, SHE WAS SEEN BY JOINT YARNER PHYSICIAN. 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 SHE HAS NO SERVICES IN THE HOME NOR ANY DME EQUIPMENT , EDUCATED ABOUT THE IMPORTANCE OF HAVING A HEALTH CARE PROXY. DISCHARGE PLAN HOME WITH NO SERVICES ANTICIPATED PATIENT TO CALL HER PRIMARY PCP FOR POST HOPSITLA DISCHARGE FOLLOW UP JOINT YARNER -PATIENT TO FOLLOW UP WITH HER PHYSICIAN PWR DISCHARGE INSTRUCTIONS TRANSPORTATION FAMILY EDUCATED ABOUT THE IMPORTANCE OF HAVING A HCP, AND EDUCATED ON THE OBSERVATION STATUS NOTICE
[2021-05-05 15:11] VITALS: BP 118/57; PULSE 63; RESP 20; TEMP 36.5; O2SAT 100
[2021-05-05 19:21] VITALS: BP 109/56; PULSE 66; RESP 20; TEMP 36.2; O2SAT 99
[2021-05-05] MEDS: Famotidine/PF 20 MG/2 ML VIAL IVPUSH (21:19)
[2021-05-05 23:37] VITALS: BP 102/53; PULSE 68; RESP 16; TEMP 36.6; O2SAT 100
[2021-05-06 03:58] VITALS: BP 109/57; PULSE 63; RESP 15; TEMP 36.1; O2SAT 99
[2021-05-06] MEDS: Dextrose 5 % and Lactated Ring 1,000 ML 100 ML IVCONT ×3 (06:45→23:31)
[2021-05-06] MEDS: ondansetron HCL 4 MG/2 ML VIAL IVPUSH ×2 (06:45→23:34)
[2021-05-06 07:31] VITALS: BP 109/59; PULSE 64; RESP 17; TEMP 36.6; O2SAT 100
[2021-05-06 07:49] LABS: Anion Gap 10 (12-20); Blood Urea Nitrogen 4 mg/dL (9-16); Calcium 8.7 mg/dL (8.4-10.2); Carbon Dioxide 21 mmol/L (22-29); Chloride 110 mmol/L (96-108); Creatinine Clr Calc Pharmacy 110.3; Estimated Glomerular Filt Rate > 60; Glucose Random 91 mg/dL (60-115); Magnesium 1.6 mg/dL (1.6-2.6); Potassium 3.4 mmol/L (3.3-5.1); Sodium 138 mmol/L (135-145)
[2021-05-06] MEDS: Metoclopramide HCl 10 MG/2 ML VIAL IVPUSH ×2 (10:15→18:48)
[2021-05-06] MEDS: Famotidine/PF 20 MG/2 ML VIAL IVPUSH ×2 (10:16→19:32)
[2021-05-06] MEDS: cefTRIAXone sodium 1 GM in 0.9 % Sodium Chloride 50 ML IV (11:02)
[2021-05-06 11:17] VITALS: BP 106/59; PULSE 64; RESP 16; TEMP 36.1; O2SAT 100
--- NOTE | 2021-05-06 12:01 | HO.PM.IMPN ---
Subjective Subjective Date of Service: 05/06/21 Interval History: seen and examined this morning, follow-up for nausea, vomiting; 8 weeks ongoing nausea this morning Review of Systems Review of Systems: Yes all other systems are reviewed and are negative Constitutional Constitutional: Denies chills and Denies fever(s) Cardiovascular Cardiovascular: Denies chest pain Respiratory Respiratory: Denies cough Gastrointestinal Gastrointestinal: Reports nausea Physical Exam Vital Signs: Vital Signs: Last Vital Signs Temp 97.0 F 05/06/21 11:17 Pulse 64 05/06/21 11:17 Resp 16 05/06/21 11:17 BP 106/59 L 05/06/21 11:17 Pulse Ox 100 05/06/21 11:17 Body Mass Index 26.4 Const: Nutritional Appearance: well nourished Orientation/consciousness: patient oriented x3 HENMT: Head: Yes normocephalic and Yes atraumatic Eyes: Sclerae: sclerae normal Chest: Chest palpation & inspection: normal inspection of the chest Resp: Effort & Inspection: normal respiratory effort and no respiratory distress Cardio: Rate: regular rate Rhythm: regular rhythm GI: Palpation (GI): Soft to palpation and nontender Neuro: General: patient oriented x3 Cranial nerves: Yes CN's II-XII intact bilaterally and Yes Bilaterally intact EOM present Objective Data Current Medications Generic Name Dose Route Start Last Admin Trade Name Freq PRN Reason Stop Dose Admin Famotidine 20 mg 05/05/21 21:00 05/06/21 10:16 Famotidine/Pf 20 Mg/2 Ml Vial IVPUSH 20 mg BID LUIS ALFREDO Administration Dextrose/Lactated Ringer's 1,000 mls @ 100 mls/hr 05/05/21 11:00 05/06/21 06:45 D5lr IVCONT 100 mls/hr .Q10H LUIS ALFREDO Administration Ceftriaxone Sodium 1 gm/ 50 mls @ 100 mls/hr 05/06/21 11:00 05/06/21 11:47 Sodium Chloride IV Infused Q24H LUIS ALFREDO Infusion Metoclopramide HCl 10 mg 05/05/21 15:36 05/06/21 10:15 Metoclopramide Hcl 10 Mg/2 Ml Vial IVPUSH 10 mg Q8H PRN Administration Nausea and Vomiting Ondansetron HCl 4 mg 05/05/21 09:25 05/06/21 06:45 Ondansetron Hcl 4 Mg/2 Ml Vial IVPUSH 4 mg Q8H PRN Administration Nausea and Vomiting Vit/Calcium/Iron/Folic Ac 1 tab 05/05/21 10:45 05/06/21 09:55 Vit27,Calcium/Iron/Fa Tablet PO Not Given DAILY LUIS ALFREDO Sodium Chloride 3 ml 05/05/21 16:00 05/06/21 09:55 0.9 % Sodium Chloride Flush 3 Ml Syringe IVFLUSH Not Given QSHIFT ON LICENSE OF [facility] Labs CBC & Chem 7: 05/05/21 01:18 05/06/21 06:42 Labs: Laboratory Results - last 24 hr 05/06/21 06:42 Sodium 138 Potassium 3.4 Chloride 110 H Carbon Dioxide 21 L Anion Gap 10 L BUN 4 L D Creatinine 0.70 Estim Creat Clear Calc 110.3 Estimated GFR > 60 Random Glucose 91 Calcium 8.7 Magnesium 1.6 Microbiology Microbiology Results: Microbiology 05/04/21 Unknown Urine Culture - Final Urine clean catch - Urine more top Quality Stroke Does the patient have a stroke diagnosis?: No VTE Prior VTE?: No VTE Risk Level:: Medical - low VTE Device Contraindication: Treatment Not Indicated VTE Drug Contraindication: Treatment Not Indicated Assessment and Plan (1) Excessive vomiting: Status: Acute Assessment and Plan: This is a 20 yo female, 8 weeks who presented to the ED with complaints of nausea and vomiting with subsequent abdominal pain. She has failed her PO challenge and is admitted for further treatment. Nausea and vomiting -antiemetics -IVF -clear liquids, ADAT monitor lytes seen by OB asymptomatic bacteriuria treatment with antibiotics as per OB - follow urine culture First Trimester preganancy EGA 8w2d by first trimester ultrasound vitamins outpatient routine care Full Code DVT pptx, Low Risk Attending: Dr. Vivar
[2021-05-06 15:20] VITALS: BP 120/60; PULSE 62; RESP 18; TEMP 36.1; O2SAT 100
[2021-05-06] MEDS: Acetaminophen 325 MG TABLET PO (18:47)
[2021-05-06 19:26] VITALS: BP 94/42; PULSE 94; RESP 15; TEMP 36.2; O2SAT 100
[2021-05-07] VITALS: BP 126/59; PULSE 67; RESP 16; TEMP 36.2; O2SAT 100
[2021-05-07 03:59] VITALS: BP 115/64; PULSE 64; RESP 16; TEMP 36.6; O2SAT 99
[2021-05-07] MEDS: Famotidine/PF 20 MG/2 ML VIAL IVPUSH (07:29)
[2021-05-07] MEDS: Metoclopramide HCl 10 MG/2 ML VIAL IVPUSH (07:29)
[2021-05-07 07:49] VITALS: BP 104/45; PULSE 62; RESP 16; TEMP 36.3; O2SAT 99
[2021-05-07] MEDS: Dextrose 5 % and Lactated Ring 1,000 ML 100 ML IVCONT (09:05)
--- NOTE | 2021-05-07 09:55 | P.DS_ITS ---
DS: Providers Provider Date of Service: 05/07/21 Date of admission: 05/05/21 09:20 Primary care physician: DANNA BONILLA MD Consults: 05/05/21 09:25 Consult to Obstetrics / Gynecology Routine Consulting Provider: Marco Enriquez Reason for consultation: Nausea and vomiting, asymptomatic bacteruria DS: Diagnosis Discharge Diagnosis (1) Hyperemesis gravidarum: Status: Acute (2) Asymptomatic bacteriuria: Status: Acute DS: Medications Discharge Medications Home Medications: Home Medications Medication Instructions Recorded Confirmed WesTab Plus 1 tab PO DAILY 05/05/21 05/05/21 Previous Rx's Medication Instructions Recorded 75-kkan-urblg acid-B6 1 ea PO . daily 90 Days #90 ea 05/05/21 [Citranatal B-Calm (Fe Gluc)] promethazine 25 mg UT Q6H PRN #20 ea 05/05/21 famotidine 20 mg PO BID PRN #30 tab 05/07/21 metoclopramide HCl [Reglan] 10 mg PO TIDAC #30 tab 05/07/21 nitrofurantoin monohyd/m-cryst 100 mg PO BID #6 cap 05/07/21 [Macrobid] DS: Summary Hospital Course Hospital Course: patient presented with hyperemesis gravidarum. She had no notable electrolyte abnormalities but was unable to keep anything by mouth. She was started on intravenous fluids and antiemetics. OBGYN was consulted and recommended addition of H2 blockers and Pepcid IV was subsequently added. Over the course of 48 hours patient had significant improvement in intractable nausea and v omiting. She is tolerating oral intake at the time of discharge. Of note, patient had asymptomatic bacteriuria for which she was treated with IV antibiotics in the hospital. She will be discharged home with 3 more days of Macrobid 100 mg twice daily. Time Spent with Patient Time attestation: Total time spent providing and/or coordinating discharge services: Discharge coordination time: Less than 30 minutes Quality: Stroke Does the patient have a stroke diagnosis?: No Physical Exam Vital Signs: Vital Signs: Last Vital Signs Temp 97.4 F 05/07/21 07:49 Pulse 62 05/07/21 07:49 Resp 16 05/07/21 07:49 BP 104/45 L 05/07/21 07:49 Pulse Ox 99 05/07/21 07:49 Body Mass Index 26.4 Const: Other: General - no acute distress, appears comfortable Cardiovascular - regular rate and rhythm, S1-S2 Lungs - normal respiratory effort, clear to auscultation bilaterally, no wheezing Abdomen - soft, nontender, no rebound or guarding Extremities - no edema bilaterally Neuro - awake and alert, no focal deficits Discharge Plan Discharge Patient Disposition: Home, Self-Care Discharge Diagnosis: Hyperemesis Gravidarum Discharge Medications: New promethazine 25 mg suppository 25 mg UT Q6H PRN (Reason: nausea and vomiting) Qty: 20 RF: 0 Citranatal B-Calm (Fe Gluc) 20 mg iron-1 mg -25 mg/25 mg tablets, sequential 1 ea PO . daily 90 Days Qty: 90 RF: 0 nitrofurantoin monohyd/m-cryst [Macrobid] 100 mg capsule 100 mg PO BID Qty: 6 RF: 0 famotidine 20 mg tablet 20 mg PO BID PRN (Reason: nausea and vomiting) Qty: 30 RF: 0 metoclopramide HCl [Reglan] 10 mg tablet 10 mg PO TIDAC Qty: 30 RF: 0 Continued WesTab Plus 27 mg iron- 1 mg tablet 1 tab PO DAILY RF: 0 Discontinued nitrofurantoin monohyd/m-cryst 100 mg capsule 1 cap PO BID RF: 0 Discharge Orders: Discharge Order (Routine); Ordered 05/07/21 Ordered By: Darío Vivar Diet: advance to usual diet Activity on Discharge: As tolerated Stand Alone Forms: Patient Portal Discharge page Care Plan Goals: To have a healthy Health Concerns: Hyperemesis gravidarum Asymptomatic Bacteriuria Plan of Treatment: take Reglan 10 mg by mouth before meals. Use Pepcid as needed. If your nausea is severe and you are unable to take anything by mouth he may use Phenergan per rectum. Take 3 more days of Macrobid for bacteria in your urine. 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 Treated with antiemetics and H2 blockers, IVF. Significantly improved and tolerating orals. Also noted to have asymptomatic bacteriuria. Treated with IV antibiotics for 2 days in the hospital, will d/c on 3 more days of oral Macrobid. Patient Instructions: Hyperemesis Gravidarum (ED)
== END 2021-05-07 10:18 | disposition home or self-care (01) ==
LOC: HO.ED 05-05 05:37 → HO.EDOVER 05-05 09:42 → HO.S3 05-05 09:45
PROVIDERS: Emergency Medicine Emergency Medical Services; Admitting Provider Family Medicine; Emergency Provider Emergency Medicine; PCP Pediatrics; Visit Provider Family Medicine
DX: O21.0 Mild hyperemesis gravidarum (principal); O23.91 Unspecified genitourinary tract infection in pregnancy, first trimester; R82.71 Bacteriuria; O26.891 Other specified pregnancy related conditions, first trimester; R10.32 Left lower quadrant pain; Z3A.08 8 weeks gestation of pregnancy
CPT/HCPCS: 36415; 76801; 80048; 80053; 81001; 81003; 83690; 83735; 84100; 84702; 85025; 86900; 86901; 87086; 87635; 96361; 96365; 96366; 96367; 96375; 96376; 99218; 99285; J0696; J1200; J2405; J2550; J2765

== ENCOUNTER 2021-05-07 20:44 | Observation (INO) | payer OTHER, MEDICAID, SELFPAY ==
--- NOTE | ~2021-05-07 | US_ITS ---
EXAMINATION: US FIRST TRIMESTER CLINICAL INFORMATION: Spotting LMP: Unknown Beta-hCG: Unknown COMPARISON: None available. TECHNIQUE: Transabdominal imaging was performed. FINDINGS: UTERUS AND INTRAUTERINE GESTATIONAL SAC: There is a single intrauterine gestational sac. CROWN-RUMP LENGTH (CRL) : 1.81 cm, estimated age 8 weeks 3 days, estimated date of confinement is 12/13/2021 YOLK SAC: Not found HEART MOTION: 163 BPM. SUBCHORIONIC HEMORRHAGE: None OVARIES: Right: Normal Left: Normal corpus luteal cyst 1.8 x 1 x 1.4 FREE FLUID: None OTHER FINDINGS: None US/US OB follow up IMPRESSION: 1. Single live intrauterine . 2. Estimated age 8 weeks and 3 days on today's exam.
--- NOTE | ~2021-05-07 | US_ITS ---
EXAMINATION: US VENOUS WITH DOPPLER UPPER EXTREMITY, RIGHT CLINICAL INFORMATION: Erythema and edema COMPARISON: None TECHNIQUE: Ultrasound of the upper extremity is performed using compression sonography and color and pulse Doppler flow with assessment of augmentation of flow. There is also imaging and Doppler assessment of the jugular and subclavian veins. Spectral analysis with color-flow imaging is performed. FINDINGS: The proximal brachial vein and cephalic vein. The occluded with noncompressible thrombus. Otherwise there is respiratory variation, normal compression, and augmented flow are noted throughout the upper extremity veins otherwise including the axillary, cubital, and radial and ulnar veins. There is normal flow in the internal jugular and subclavian veins. . Soft tissue edema seen in the arm. US/US venous duplex UE RT IMPRESSION: Occlusive thrombus is seen within the cephalic vein and proximal brachial veins. This critical result was discussed with Dr. Saldivar at 05/10/2021 8:32 PM and it was ascertained that the content and urgency of the report was understood at the time of direct communication.
[2021-05-07 20:48] VITALS: BP 131/64; PULSE 71; RESP 16; TEMP 36.9; O2SAT 100; BMI 26.4
[2021-05-07 22:24] VITALS: BP 118/58; PULSE 64; RESP 16; O2SAT 100
[2021-05-08 00:37] LABS: Basophils Percent Auto 0.2 % (0-2); Eosinophils Absolute Auto 0.2 X10*3/uL (0.0-0.4); Eosinophils Percent Auto 3.1 % (0-4); Hematocrit 30.3 % (37-47); Hemoglobin 10.8 g/dl (12.0-16.0); Imm Gran Abs Auto 0.01 X10*3/uL (0.00-0.03); Imm Gran Pct Auto 0.2 % (0.0-0.4); Lymphocytes Absolute Auto 1.2 X10*3/uL (1.2-4.9); Lymphocytes Percent Auto 23.9 % (20-40); MANUAL DIFF FLAG NO; Mean Corpuscular HGB Conc 35.6 g/dl (31.0-35.0); Mean Corpuscular Hemoglobin 31.1 pg (27.0-33.0); Mean Corpuscular Volume 87.3 fL (80-98); Monocytes Absolute Auto 0.6 X10*3/uL (0.1-1.2); Monocytes Percent Auto 11.6 % (2-11); Neutrophils Absolute Auto 2.9 X10*3/uL (2.0-8.3); Platelet Count 185 X10*3/uL (160-400); Red Blood Count 3.47 X10*6/uL (4.20-5.50); Red Cell Distribution Width 11.6 % (11.0-16.0); White Blood Count 4.8 X10*3/uL (4.8-10.8)
[2021-05-08 01:00] LABS: Glucose Urine UA NEG (NEG); Leukocyte Esterase Urine 1+ (NEG); Nitrite Urine NEG (NEG); Specific Gravity - Urine 1.015 (1.005-1.025); UACC Culture Trigger YES; Urine Blood NEG (NEG); Urine Ketones >=80 MG/DL (NEG); Urine Protein NEG (NEG-TRACE)
[2021-05-08 01:01] LABS: Alanine Aminotransferase 25 U/L (0-31); Albumin Level 3.8 g/dL (3.5-5.0); Alkaline Phosphatase 60 U/L (39-117); Anion Gap 13 (12-20); Aspartate Amino Transferase 18 U/L (5-31); Bilirubin Direct 0.2 mg/dL (0.0-0.5); Bilirubin Total 0.4 mg/dL (0.0-1.0); Blood Urea Nitrogen 3 mg/dL (9-16); Calcium 8.8 mg/dL (8.4-10.2); Carbon Dioxide 19 mmol/L (22-29); Chloride 108 mmol/L (96-108); Estimated Glomerular Filt Rate > 60; Glucose Random 76 mg/dL (60-115); Lipase 58 U/L (8-78); Magnesium 1.6 mg/dL (1.6-2.6); Potassium 3.4 mmol/L (3.3-5.1); Sodium 137 mmol/L (135-145); Total Protein 6.3 g/dL (6.5-8.0)
[2021-05-08 01:02] LABS: Appearance Urine CLEAR; Color Urine YELLOW
[2021-05-08] MEDS: 0.9 % Sodium Chloride 1,000 ML 999 ML IVCONT ×2 (01:04→02:35)
[2021-05-08] MEDS: Famotidine/PF 20 MG/2 ML VIAL IVPUSH ×2 (01:05→20:49)
[2021-05-08] MEDS: diphenhydrAMINE HCL 50 MG/ML VIAL 25 MG IVPUSH (01:05)
[2021-05-08] MEDS: Metoclopramide HCl 10 MG/2 ML VIAL IVPUSH (01:05)
[2021-05-08 01:09] LABS: Bacteria Urine TRACE /LPF; Mucus Urine TRACE /LPF; Squamous Epithelial Cell Urine 2+ /LPF
--- NOTE | 2021-05-08 01:28 | ED.NAVMDI ---
HPI - Nausea/Vomiting/Diarrhea General Chief complaint: Nausea/Vomiting/Diarrhea Stated complaint: Vomiting/8 wks preg Time Seen by Provider: 05/07/21 23:17 Source: patient Mode of arrival: ambulatory History of Present Illness HPI Narrative: 20-year-old female at 8 weeks gestation who presents to the ED c/o persistent nausea/vomiting since discharge from our facility for hyperemesis gravidarum and UTI treatment this morning. Reports about 20 episodes of emesis today with inability to tolerate p.o. Also reports lower abdominal cramping, vaginal spotting which has since resolved, and green vaginal discharge. Is sexually active with 1 male partner, denies history/concern for STIs. Denies fever, chills, diarrhea/constipation, dysuria/hematuria MD elicited complaint: nausea, vomiting and abdominal pain Related Data Home Medications Medication Instructions Recorded Confirmed WesTab Plus 1 tab PO DAILY 05/05/21 05/05/21 Previous Rx's Medication Instructions Recorded 66-glvq-pfixk acid-B6 1 ea PO . daily 90 Days #90 ea 05/05/21 [Citranatal B-Calm (Fe Gluc)] promethazine 25 mg IN Q6H PRN #20 ea 05/05/21 famotidine 20 mg PO BID PRN #30 tab 05/07/21 metoclopramide HCl [Reglan] 10 mg PO TIDAC #30 tab 05/07/21 nitrofurantoin monohyd/m-cryst 100 mg PO BID #6 cap 05/07/21 [Macrobid] metronidazole [Flagyl] 500 mg PO Q12H 7 Days #14 tab 05/08/21 miconazole nitrate 1 appful VAGINAL BEDTIME 7 Days 05/08/21 #45 g Allergies Allergy/AdvReac Type Severity Reaction Status Date / Time No Known Allergies Allergy Verified 05/07/21 20:54 [No Known Allergies*] Review of Systems Review of Systems: Constitutional: No Fever, No Chills, No Fatigue, No Malaise Cardiovascular: No Chest Pain, No SOB Respiratory: No Cough, No Dyspnea Gastrointestinal: + Nausea, + Vomiting, No Diarrhea, No Constipation, + Abdominal pain Genitourinary: + irregular bleeding, No Dysuria, No Urinary Frequency, No Hematuria, + vaginal discharge Musculoskeletal: No joint pain, No Myalgias, No Joint Swelling Skin: No Skin Lesions, No rash Neuro: No Weakness, No Numbness, No Paresthesias, No Loss of Consciousness, No Dizziness, No Headache Yes all other systems are reviewed and are negative FORMERLY [facility], [facility] Past Medical History Attestation statement: The following information was validated with the patient. Social History Social History Alcohol intake: never Patient Tobacco Use Status: Never used Tobacco Advance Directives: No Patient : Yes service: No Current occupational status: employed Gender identity: female Physical Exam Vital Signs: Vital Signs: Last Vital Signs Temp 98.5 F 05/07/21 20:48 Pulse 64 05/07/21 22:24 Resp 16 05/07/21 22:24 BP 118/58 L 05/07/21 22:24 Pulse Ox 100 05/07/21 22:24 Body Mass Index 26.4 Const: General: cooperative, healthy appearing, comfortable and no acute distress Orientation/consciousness: patient oriented x3 Limitations: no limitations HENMT: Head: Yes normal to inspection Ears: hearing grossly normal bilaterally General nose exam: Normal external nose present Face and sinus: Yes normal facial exam Eyes: General: appearance normal, both eyes and all related structures EOM: EOMs intact bilaterally Neck: Neck: Yes normal visual inspection Resp: Effort & Inspection: normal respiratory effort Auscultation: clear to auscultation bilaterally Cardio: Rate: regular rate Heart sounds: S1 normal heart sound present and S2 normal heart sound present GI: Inspection: Yes normal to inspection Palpation (GI): Soft to palpation, nontender, no guarding and not rigid : General: Yes no CVA tenderness Speculum Exam - Vagina: abnormal vaginal discharge (White/yellow, thick) and No vaginal bleeding Speculum Exam - Cervix: nontender Bimanual exam- vagina & uterus: normal bimanual exam and No Cervical tenderness present Bimanual Exam- Adnexa, other: normal adnexae and no tenderness OB/external & speculum: No vaginal bleeding Back/Spine/Pelvis: Back: no CVA tenderness Skin: Rashes: no rashes Wounds: no wounds Neuro: General: patient oriented x3 Gait exam (Neuro): Normal gait present Extrem: General: Yes normal to inspection Course Course Course Narrative: -no leukocytosis, H&H slightly lower than priors likely dilutional from IVF with recent admission, labs otherwise unremarkable, beta quant greater than 151,000 -UA infected, patient currently being treated with Macrobid > culture consistent with mixed bacterial danii characteristic of contamination -will treat patient for Trichomonas/yeast with Flagyl/Miconazole On re-evaluation reports continued nausea, unable to tolerate p.o. > Compazine and vitamin B6 ordered -214--yeast positive. On re-evaluation patient is still unable to tolerate p.o. > will speak to hospitalist team. Hospitalist asked if patient could be observed for few more hours -227--ED care transferred to Dr. Gutierrez pending re-evaluation MDM - Nausea/Vomiting/Diarrhea MDM Narrative Medical decision making narrative: 20-year-old female at 8 weeks gestation who presents to the ED c/o persistent nausea/vomiting since discharge from our facility for hyperemesis gravidarum this morning. Reports about 20 episodes of emesis today with inability to tolerate p.o. Also reports lower abdominal cramping, vaginal spotting which has since resolved, and green vaginal discharge. On exam VSS, NAD/well-appearing, abdomen soft/nontender, thick white/yellowish vaginal discharge noted on pelvic, no CMT or/adnexal tenderness, no evidence of vaginal bleeding. Concerning for Trichomonas/yeast, patient denies concern for STI, would like to hold on empiric treatment until culture results. Concern for hyperemesis and electrolyte abnormalities vs dehydration. Concern for STI. Low concern for PID. Lower concern for SAB or threatened with ultrasound 2 days ago showing single IUP Plan: Labs, UA, STI testing, IVF, antiemetics, reassess, p.o. challenge Lab Data Result diagrams: 05/08/21 00:28 05/08/21 00:28 Labs: Lab Results 05/08/21 05/08/21 05/08/21 Range/Units 00:28 00:28 Unknown WBC 4.8 (4.8-10.8) X10*3/uL RBC 3.47 L (4.20-5.50) X10*6/uL Hgb 10.8 L (12.0-16.0) g/dl Hct 30.3 L (37-47) % MCV 87.3 (80-98) fL MCH 31.1 (27.0-33.0) pg MCHC 35.6 H (31.0-35.0) g/dl RDW 11.6 (11.0-16.0) % Plt Count 185 (160-400) X10*3/uL MPV 9.0 L (9.4-12.3) fL Immature Gran % (Auto) 0.2 (0.0-0.4) % Neut % (Auto) 61.0 (45-73) % Lymph % (Auto) 23.9 (20-40) % [place] % (Auto) 11.6 H (2-11) % Eos % (Auto) 3.1 (0-4) % Baso % (Auto) 0.2 (0-2) % Lymph # (Auto) 1.2 (1.2-4.9) X10*3/uL [place] # (Auto) 0.6 (0.1-1.2) X10*3/uL Eos # (Auto) 0.2 (0.0-0.4) X10*3/uL Baso # (Auto) 0.0 (0.0-0.2) X10*3/uL Abs Immat Gran (auto) 0.01 (0.00-0.03) X10*3/uL Absolute Neuts (auto) 2.9 (2.0-8.3) X10*3/uL Absolute Nucleated RBC 0.000 (0.0-0.012) X10*3/uL Nucleated RBC % (auto) 0.0 (0.0-0.2) /100WBC Sodium 137 (135-145) mmol/L Potassium 3.4 (3.3-5.1) mmol/L Chloride 108 (96-108) mmol/L Carbon Dioxide 19 L (22-29) mmol/L Anion Gap 13 (12-20) BUN 3 L (9-16) mg/dL Creatinine 0.66 (0.5-1.4) mg/dL Estim Creat Clear Calc 117.0 Estimated GFR > 60 Random Glucose 76 (60-115) mg/dL Calcium 8.8 (8.4-10.2) mg/dL Magnesium 1.6 (1.6-2.6) mg/dL Total Bilirubin 0.4 (0.0-1.0) mg/dL Direct Bilirubin 0.2 (0.0-0.5) mg/dL AST 18 (5-31) U/L ALT 25 (0-31) U/L Alkaline Phosphatase 60 (39-117) U/L Total Protein 6.3 L (6.5-8.0) g/dL Albumin 3.8 (3.5-5.0) g/dL Lipase 58 (8-78) U/L Beta HCG, Quant 146358 mIU/mL Urine Color YELLOW Urine Appearance CLEAR Urine pH 7.0 (5.0-8.0) Ur Specific [place] 1.015 (1.005-1.025) Urine Protein NEG (NEG-TRACE) MG/DL Urine Glucose (UA) NEG (NEG) MG/DL Urine Ketones >=80 (NEG) MG/DL Urine Blood NEG (NEG) Urine Nitrite NEG (NEG) Ur Leukocyte Esterase 1+ H (NEG) Urine RBC 1-4 (0) /HPF Urine WBC 5-9 H (0-4) /HPF Ur Squamous Epith Cells 2+ /LPF Urine Bacteria TRACE /LPF Urine Mucus TRACE /LPF Discharge Plan Discharge Clinical Impression: Hyperemesis gravidarum, Vaginal discharge Prescriptions: New miconazole nitrate 2 % cream 1 appful vaginal BEDTIME 7 Days Qty: 45 RF: 0 metronidazole [Flagyl] 500 mg tablet 500 mg PO Q12H 7 Days Qty: 14 RF: 0 No Action promethazine 25 mg suppository 25 mg IN Q6H PRN (Reason: nausea and vomiting) Qty: 20 RF: 0 Citranatal B-Calm (Fe Gluc) 20 mg iron-1 mg -25 mg/25 mg tablets, sequential 1 ea PO . daily 90 Days Qty: 90 RF: 0 WesTab Plus 27 mg iron- 1 mg tablet 1 tab PO DAILY RF: 0 nitrofurantoin monohyd/m-cryst [Macrobid] 100 mg capsule 100 mg PO BID Qty: 6 RF: 0 famotidine 20 mg tablet 20 mg PO BID PRN (Reason: nausea and vomiting) Qty: 30 RF: 0 metoclopramide HCl [Reglan] 10 mg tablet 10 mg PO TIDAC Qty: 30 RF: 0
[2021-05-08] MEDS: Prochlorperazine Edisylate 10 MG/2 ML VIAL 5 MG IVPUSH (02:34)
[2021-05-08 02:51] LABS: CT PCR NOT DETECTED (Not Detect.); NG PCR NOT DETECTED (Not Detect.)
[2021-05-08 03:11] LABS: Amphetamine Screen Urine Not Detected (Not Detect); Barbiturates, Urine Not Detected (Not Detect); Benzodiazepines Screen Urine Not Detected (Not Detect); Cannabinoid Screen Urine Not Detected (Not Detect); Cocaine Screen Urine Not Detected (Not Detect); Opiate Screen Urine Not Detected (Not Detect); Phencyclidine Screen Urine Not Detected (Not Detect)
[2021-05-08] MEDS: Pyridoxine HCl (Vitamin B6) 50 MG TABLET 25 MG PO (04:17)
--- NOTE | 2021-05-08 07:23 | PC.NURSE ---
Patient's original plan of care was to be discharged home. Since arrival to ED, pt has not vomited once. Pt refusing to attempt PO challenge with this RN, , and Yvonne Maravilla. Pt asking to be admitted for nausea/vomiting. Pt is . Vitals have remained stable. Pt in no acute distress, has been sleeping during most of this RN's shift. Plan for admission as requested, per . RN to RN report given to Annalise (ED RN). Annalise to assume care of the patient beginning at this time.
--- NOTE | 2021-05-08 10:17 | P.CONOB_ITS ---
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 at 8 weeks and 5 days of gestation by an ultrasound done 3 days ago complaining of nausea and vomiting over the last few hours prior to presentation, no associated fever or chills, diarrhea, no urinary frequency, urgency or dysuria, the patient complained of mild vaginal spotting with no pelvic cramping, now resolved. the following workup was done emergency, hematocrit of 30.3, chemistry including liver function tests, electrolytes are within normal, UA showed bacteria was +1 leukocyte esterase negative nitrite, urine culture was sent few days ago still pending. Trich prep was negative for Trichomonas and positive for yeast, GC and chlamydia negative, BV panel and Trichomonas are pending. Rh positive. Ob ultrasound done 3 days ago showed single intrauterine gestation with ultrasound gestational age of 8 weeks 2 days +/- 4 days. The patient was admitted 3 days ago for IV hydration was treated with I antiemetic Zofran, Reglan and Pepcid, was started on ceftriaxone for asymptomatic bacteriuria pending culture has improved markedly and was discharged home to come back with the same symptoms. Urine culture still pending The patient was given IV hydration and antiemetic, and failed a p.o. 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 - Review of Systems Review of Systems ROS Unobtainable: All systems reviewed & are unremarkable except as noted in HPI and below Cardiovascular: Denies Palpatations, Loss of consciousness and Chest pain Respiratory: Denies Cough, Wheezing and Shortness of breath Musculoskeletal: Denies Low back pain Gastrointestinal: Denies Heartburn, Constipation, Diarrhea, Nausea and Vomiting Genitourinary: Denies Pain with urination, Burning with urination and Urinary frequency Neurological: Denies Migranes Psychological: Denies Depression OB [facility] Social History Social History Alcohol intake: never Patient Tobacco Use Status: Never used Tobacco Advance Directives: No Patient : Yes service: No Current occupational status: employed Gender identity: female Meds Allergies Allergy/AdvReac Type Severity Reaction Status Date / Time No Known Allergies Allergy Verified 05/07/21 20:54 [No Known Allergies*] Home Medications Medication Instructions Recorded Confirmed Last Taken Type WesTab Plus 1 tab PO DAILY 05/05/21 05/08/21 Unknown History 48-wxyb-bumaj acid-B6 1 ea PO DAILY 05/08/21 05/08/21 Unknown History [Citranatal B-Calm (Fe Gluc)] [employer]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 Physical Exam Vitals Vital signs: Temp Pulse Resp BP Pulse Ox 98.5 F 64 16 118/58 L 100 05/07/21 20:48 05/07/21 22:24 05/07/21 22:24 05/07/21 22:24 05/07/21 22:24 Body Mass Index 26.4 Constitutional General Appearance: Healthy appearing, Well-nourished and Well-developed Psychiatric Mood and Affect: active and alert, normal mood and normal affect Skin Appearance: No rashes and No lesions Lungs Respiratory Effort: No intercostal retractions Auscultation: Clear to auscultation Cardiovascular Auscultation: RRR Abdomen Auscultation/Inspection/Palpation: Normal bowel sounds, Soft, Non-distended and No tenderness Female Genitalia (Pelvic) Exam: Deferred [employer]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 - Results Labs CBC & Chem 7: 05/08/21 00:28 05/08/21 00:28 Labs: Short CBC 05/08/21 Range/Units 00:28 WBC 4.8 (4.8-10.8) X10*3/uL Hgb 10.8 L (12.0-16.0) g/dl Hct 30.3 L (37-47) % Plt Count 185 (160-400) X10*3/uL BMP 05/08/21 00:28 Sodium 137 Potassium 3.4 Chloride 108 Carbon Dioxide 19 L BUN 3 L Creatinine 0.66 Calcium 8.8 Liver Function 05/08/21 Range/Units 00:28 Total Bilirubin 0.4 (0.0-1.0) mg/dL Direct Bilirubin 0.2 (0.0-0.5) mg/dL AST 18 (5-31) U/L ALT 25 (0-31) U/L Alkaline Phosphatase 60 (39-117) U/L Albumin 3.8 (3.5-5.0) g/dL Urine 05/08/21 Range/Units Unknown Urine Color YELLOW Urine Appearance CLEAR Urine pH 7.0 (5.0-8.0) Ur Specific [place] 1.015 (1.005-1.025) Urine Protein NEG (NEG-TRACE) MG/DL Urine Glucose (UA) NEG (NEG) MG/DL Assessment and Plan (1) Asymptomatic bacteriuria: Status: Acute Keep on ceftriaxone IV pending culture (2) Hyperemesis gravidarum: Status: Acute IV hydration with D5 LR, urine dip q void till ketones clear, TSH, Pepcid IV, treat with any of the following antiemetics and switch if the patient is resistant to treatment: Zofran, Reglan, Compazine, Phenergan. If all fail to control nausea and vomiting will consider glucocorticoids treatment IV. vitamin 1 tablet p.o. q.d. if tolerated (3) Spotting in first trimester: Status: Acute Repeat OB ultrasound to check viability, SAB warnings given the patient. (4) Candidal vulvovaginitis: Status: Acute Terazol 0.8% vaginally q.h.s. for 7 nights. Checked BV panel and treat accordingly
[2021-05-08 12:49] VITALS: BP 101/46; PULSE 84; RESP 16; TEMP 36.7; O2SAT 99
--- NOTE | 2021-05-08 12:49 | P.HPHOSP_ITS ---
History of Present Illness Date of Service: 05/08/21 <Susu Beauchamp NP - Last Filed: 05/08/21 13:21> Chief Complaint: nausea and vomiting <Susu Beauchamp NP - Last Filed: 05/08/21 13:21> 20-year-old 8 week gestation female who presents to the ER with continued nausea and vomiting. She was discharged from [facility] yesterday and at that time treated for hyperemesis gravidarum. At that time she was treated with H2 blockers, IV Pepcid and her nausea and vomiting significantly improved. She had asymptomatic bacteriuria and was treated with IV antibiotics and was discharged with Macrobid. she presented due to persistent nausea and vomiting and reported more than 20 episodes vomiting with inability to eat or drink anything. She also reported some mild spotting. she also had complaints discharge, STI panel pending. She was given IV fluids, antiemetics in the ER. She will be admitted to observation for further management treatment of hyperemesis gravidarum. <Susu Beauchamp NP - Last Filed: 05/08/21 13:21> Review of Systems Review of Systems: Denies any recent fever chills or decrease in appetite respiratory denies any shortness of breath coverage production cardiovascular is adjustment of any PND or edema gastrointestinal denies any dysphagia abdominal pain nausea vomiting or diarrhea genitourinary denies any dysuria frequency or hematuria musculoskeletal denies any joint pain or swelling neuropsych denies any weakness or seizures all other systems reviewed are negative <Susu Beauchamp NP - Last Filed: 05/08/21 13:21> [facility] Medical History: Medical History Nausea & vomiting <Susu Beauchamp NP - Last Filed: 05/08/21 13:21> Social History: Social History Household Members: Family Housing: House Do you presently have visiting nurse or other home services: No Alcohol intake: never Patient Tobacco Use Status: Never used Tobacco Use of substances other than those prescribed or required for medical reasons: No Currently Displaying Signs/Symptoms of Drug Intoxication Withdrawal: No Have you been hit, kicked, punched, or otherwise hurt by someone within the past year? If so, by whom?: No Do you feel safe in your current relationship?: Yes Is there a partner from a previous relationship who is making you feel unsafe n ow?: No Are you made to feel afraid or neglected: No Advance Directives: No Do you have thoughts of harming others: None Do you have a plan to hurt others: No Plan Recently lost weight without trying: Yes How much weight loss: 14-23 pounds Eating poorly because of decreased appetite: Yes Nutrition screen score: 5 Nutrition Risks: Acute nausea or vomiting x1 week Patient : Yes : No Poor oral hygiene: No service: No Current occupational status: employed Gender identity: female <Susu Beauchamp NP - Last Filed: 05/08/21 13:21> Meds Allergies/Adverse reactions: Allergies Allergy/AdvReac Type Severity Reaction Status Date / Time No Known Allergies Allergy Verified 05/07/21 20:54 [No Known Allergies*] <Susu Beauchamp NP - Last Filed: 05/08/21 13:21> Active Medications: Current Medications Generic Name Dose Route Start Last Admin Trade Name Josephine PRN Reason Stop Dose Admin Acetaminophen 650 mg 05/08/21 12:34 Acetaminophen 325 Mg Tablet PO Q6H PRN Pain, Mild (Pain Scale 1-3) Famotidine 20 mg 05/08/21 21:00 Famotidine/Pf 20 Mg/2 Ml Vial IVPUSH BID LUIS ALFREDO Dextrose/Lactated Ringer's 1,000 mls @ 100 mls/hr 05/08/21 12:45 D5lr IVCONT .Q10H LUIS ALFREDO Ondansetron HCl 4 mg 05/08/21 12:34 Ondansetron Hcl 4 Mg/2 Ml Vial IVPUSH Q8H PRN Nausea and Vomiting Sodium Chloride 3 ml 05/08/21 16:00 0.9 % Sodium Chloride Flush 3 Ml Syringe IVFLUSH QSHIFT LUIS ALFREDO <Susu Beauchamp NP - Last Filed: 05/08/21 13:21> Home medications: Home Medications Medication Instructions Recorded Confirmed Last Taken Type WesTab Plus 1 tab PO DAILY 05/05/21 05/08/21 Unknown History 12-ihos-omztc acid-B6 1 ea PO DAILY 05/08/21 05/08/21 Unknown History [Citranatal B-Calm (Fe Gluc)] <Susu Beauchamp NP - Last Filed: 05/08/21 13:21> Physical Exam Vital Signs and Narrative: Vital Signs: Last Vital Signs Temp 98.5 F 05/07/21 20:48 Pulse 64 05/07/21 22:24 Resp 16 05/07/21 22:24 BP 118/58 L 05/07/21 22:24 Pulse Ox 100 05/07/21 22:24 Body Mass Index 26.4 <Susu Beauchamp NP - Last Filed: 05/08/21 13:21> Appearing in no acute distress head is normocephalic atraumatic eyes pupils are PERRLA sclera is anicteric mouth throat mucous membranes are intact and moist neck is supple no lymphadenopathy, no JVD noted lung sounds are clear to auscultation heart regular rate rhythm, clear S1, S2 positive bowel sounds, abdomen is soft, nontender neuro patient is alert x3, no focal deficits <Susu Beauchamp NP - Last Filed: 05/08/21 13:21> Results Labs CBC and Chem 7: : 05/09/21 05:31 05/09/21 05:31 <Susu Beauchamp NP - Last Filed: 05/08/21 13:21> Labs: Laboratory Results - last 24 hr 05/08/21 05/08/21 05/08/21 00:28 00:28 01:03 MCV 87.3 MCH 31.1 MCHC 35.6 H RDW 11.6 Plt Count 185 MPV 9.0 L Immature Gran % (Auto) 0.2 Neut % (Auto) 61.0 Lymph % (Auto) 23.9 [place] % (Auto) 11.6 H Eos % (Auto) 3.1 Baso % (Auto) 0.2 Lymph # (Auto) 1.2 [place] # (Auto) 0.6 Eos # (Auto) 0.2 Baso # (Auto) 0.0 Abs Immat Gran (auto) 0.01 Absolute Neuts (auto) 2.9 Absolute Nucleated RBC 0.000 Nucleated RBC % (auto) 0.0 Anion Gap 13 Estim Creat Clear Calc 117.0 Estimated GFR > 60 Random Glucose 76 Calcium 8.8 Magnesium 1.6 Total Bilirubin 0.4 Direct Bilirubin 0.2 AST 18 ALT 25 Alkaline Phosphatase 60 Total Protein 6.3 L Albumin 3.8 Lipase 58 Beta HCG, Quant [id number] Urine Color Urine Appearance Urine pH Ur Specific [place] Urine Protein Urine Glucose (UA) Urine Ketones Urine Blood Urine Nitrite Ur Leukocyte Esterase Urine RBC Urine WBC Ur Squamous Epith Cells Urine Bacteria Urine Mucus Urine Opiates Screen Ur Barbiturates Screen Ur Phencyclidine Scrn Ur Amphetamines Screen U Benzodiazepines Scrn Urine Cocaine Screen U Marijuana (THC) Screen Chlam trachomat DNA PCR NOT DETECTED N.gonorrhoeae DNA (PCR) NOT DETECTED 05/08/21 05/08/21 02:41 Unknown MCV MCH MCHC RDW Plt Count MPV Immature Gran % (Auto) Neut % (Auto) Lymph % (Auto) [place] % (Auto) Eos % (Auto) Baso % (Auto) Lymph # (Auto) [place] # (Auto) Eos # (Auto) Baso # (Auto) Abs Immat Gran (auto) Absolute Neuts (auto) Absolute Nucleated RBC Nucleated RBC % (auto) Anion Gap Estim Creat Clear Calc Estimated GFR Random Glucose Calcium Magnesium Total Bilirubin Direct Bilirubin AST ALT Alkaline Phosphatase Total Protein Albumin Lipase Beta HCG, Quant Urine Color YELLOW Urine Appearance CLEAR Urine pH 7.0 Ur Specific [place] 1.015 Urine Protein NEG Urine Glucose (UA) NEG Urine Ketones >=80 Urine Blood NEG Urine Nitrite NEG Ur Leukocyte Esterase 1+ H Urine RBC 1-4 Urine WBC 5-9 H Ur Squamous Epith Cells 2+ Urine Bacteria TRACE Urine Mucus TRACE Urine Opiates Screen Not Detected Ur Barbiturates Screen Not Detected Ur Phencyclidine Scrn Not Detected Ur Amphetamines Screen Not Detected U Benzodiazepines Scrn Not Detected Urine Cocaine Screen Not Detected U Marijuana (THC) Screen Not Detected Chlam trachomat DNA PCR N.gonorrhoeae DNA (PCR) <Susu Beauchamp NP - Last Filed: 05/08/21 13:21> Assessment and Plan (1) Hyperemesis gravidarum: Status: Acute <Susu Beauchamp NP - Last Filed: 05/08/21 13:21> 20-year-old woman placed on observation for hyperemesis gravidarum. Was recently discharged for the same. no electrolyte abnormalities noted. Hyperemesis gravidarum. Seen and evaluated by OBGYN recommendation to treat with antiemetic, will start was Zofran, IV fluids and IV Pepcid Vaginal spotting repeat ultrasound , most recent ultrasound on 05/05 was normal Possible vaginal yeast infection Clotrimazole intravaginally at bedtime for 7 days DVT prophylaxis with early ambulation, low risk attending Dr. Rios full code <Susu Beauchamp NP - Last Filed: 05/08/21 13:21> Quality Stroke Does the patient have a stroke diagnosis?: No <Susu Beauchamp NP - Last Filed: 05/08/21 13:21> VTE Prior VTE?: No <Susu Beauchamp NP - Last Filed: 05/08/21 13:21> VTE Risk Level:: Medical - moderate - high <Susu Beauchamp NP - Last Filed: 05/08/21 13:21> VTE Device Contraindication: Treatment Not Indicated <Susu Beauchamp NP - Last Filed: 05/08/21 13:21> VTE Drug Contraindication: Treatment Not Indicated <Susu Beauchamp NP - Last Filed: 05/08/21 13:21>
[2021-05-08 13:35] LABS: BV Int Neg Control Negative (Negative); BV Int Pos Control Positive (Positive)
[2021-05-08 14:00] VITALS: BP 110/58; PULSE 84; RESP 16; TEMP 36.7; O2SAT 100
[2021-05-08] MEDS: Dextrose 5 % and Lactated Ring 1,000 ML 100 ML IVCONT (14:30)
[2021-05-08] MEDS: cefTRIAXone sodium 1 GM in 0.9 % Sodium Chloride 50 ML IV (14:33)
--- NOTE | 2021-05-08 14:46 | PC.NURSE ---
PT AOX4 AMB OOB STATES SHE IS AFRAID TO EAT BECAUSE SHE DOESEN'T WANT TO VOMIT HAS BEEN OFFERED FOOD SEVERAL TIMES FOLLOWED BY TEACHING. PT HAS BEEN SEEN BY HOSPITALIST AND IS WAITING ON BED ASSISMENT. PT HAS NOT VOMITED THIS SHIFT.
--- NOTE | 2021-05-08 16:44 | PC.NURSE ---
REPORT GIVEN TO URI BRYSON, PT WILL BE TRANSFERRED TO ROOM [id number]
[2021-05-08 18:38] VITALS: BP 118/65; PULSE 66; RESP 18; TEMP 36.9; O2SAT 100
[2021-05-08 19:22] VITALS: BMI 27.8
[2021-05-08] MEDS: 0.9 % Sodium Chloride Flush 3 ML SYRINGE IVFLUSH (20:49)
[2021-05-08] MEDS: ondansetron HCL 4 MG/2 ML VIAL IVPUSH (20:49)
[2021-05-08] MEDS: Clotrimazole 1 % Vaginal Cream 45 GM TUBE 1 APPL VAGINAL (20:49)
[2021-05-08 23:24] VITALS: BP 107/56; PULSE 81; RESP 18; TEMP 37.1; O2SAT 100
[2021-05-09] MEDS: Dextrose 5 % and Lactated Ring 1,000 ML 100 ML IVCONT ×3 (00:33→20:58)
[2021-05-09 03:50] VITALS: BP 114/55; PULSE 79; RESP 18; TEMP 36.6; O2SAT 99
[2021-05-09] MEDS: Acetaminophen 325 MG TABLET 650 MG PO (05:39)
[2021-05-09] MEDS: ondansetron HCL 4 MG/2 ML VIAL IVPUSH ×2 (05:39→15:40)
[2021-05-09 06:10] LABS: MANUAL DIFF FLAG NO
[2021-05-09 06:19] LABS: Eosinophils Absolute Auto 0.2 X10*3/uL (0.0-0.4); Eosinophils Percent Auto 4.3 % (0-4); Hematocrit 29.7 % (37-47); Hemoglobin 10.6 g/dl (12.0-16.0); Imm Gran Abs Auto 0.02 X10*3/uL (0.00-0.03); Imm Gran Pct Auto 0.6 % (0.0-0.4); Lymphocytes Absolute Auto 0.9 X10*3/uL (1.2-4.9); Lymphocytes Percent Auto 26.8 % (20-40); Mean Corpuscular HGB Conc 35.7 g/dl (31.0-35.0); Mean Corpuscular Hemoglobin 31.1 pg (27.0-33.0); Mean Corpuscular Volume 87.1 fL (80-98); Mean Platelet Volume 9.8 fL (9.4-12.3); Monocytes Absolute Auto 0.4 X10*3/uL (0.1-1.2); Monocytes Percent Auto 11.7 % (2-11); Neutrophils Percent Auto 56.6 % (45-73); Platelet Count 194 X10*3/uL (160-400); Red Blood Count 3.41 X10*6/uL (4.20-5.50); Red Cell Distribution Width 11.5 % (11.0-16.0); White Blood Count 3.5 X10*3/uL (4.8-10.8)
[2021-05-09 06:45] LABS: Anion Gap 12 (12-20); Blood Urea Nitrogen 3 mg/dL (9-16); Calcium 8.6 mg/dL (8.4-10.2); Carbon Dioxide 20 mmol/L (22-29); Chloride 109 mmol/L (96-108); Creatinine Clr Calc Pharmacy 125.7; Estimated Glomerular Filt Rate > 60; Glucose Random 84 mg/dL (60-115); Potassium 3.7 mmol/L (3.3-5.1); Sodium 137 mmol/L (135-145)
[2021-05-09 07:08] LABS: Thyroid Stimulating Hormone 0.14 uIU/mL (0.32-4.0)
[2021-05-09 07:34] VITALS: BP 112/57; PULSE 70; RESP 16; TEMP 36.6; O2SAT 99
[2021-05-09] MEDS: Famotidine/PF 20 MG/2 ML VIAL IVPUSH ×2 (08:18→20:50)
--- NOTE | 2021-05-09 08:45 | MHC.CM.PN ---
CM met with Patient at bedside. Patient lives in a house with her Mother and her goal is to return home. CM has initiated and will follow for dc planning. DANIELLA addressed With Patient and the original has been given to her and a copy has been placed on the chart. PCP is Dr. Tru Aragon.
[2021-05-09 09:40] LABS: Free T4 (Free Thyroxine) 1.09 ng/dL (0.71-1.85)
[2021-05-09 11:57] VITALS: BP 118/58; PULSE 75; RESP 16; TEMP 36.4; O2SAT 99
[2021-05-09] MEDS: cefTRIAXone sodium 1 GM in 0.9 % Sodium Chloride 50 ML IV (15:40)
[2021-05-09 15:41] VITALS: BP 99/57; PULSE 69; RESP 18; TEMP 36.5; O2SAT 99
--- NOTE | 2021-05-09 15:54 | PM.IMPN ---
Subjective Subjective Date of Service: 05/09/21 <Susu Beauchamp NP - Last Filed: 05/09/21 15:57> 05/09/21 <Jim Rios MD - Last Filed: 05/09/21 16:21> Interval History: Follow up hyperemesis gravidarum Still with some nausea <Susu Beauchamp NP - Last Filed: 05/09/21 15:57> Physical Exam Vital Signs: Vital Signs: Last Vital Signs Temp 97.7 F 05/09/21 15:41 Pulse 69 05/09/21 15:41 Resp 18 05/09/21 15:41 BP 99/57 L 05/09/21 15:41 Pulse Ox 99 05/09/21 15:41 Body Mass Index 27.8 <Susu Beauchamp NP - Last Filed: 05/09/21 15:57> Appearing in no acute distress lung sounds are clear to auscultation heart regular rate rhythm, clear S1, S2 positive bowel sounds, nontender neuro patient is alert x3, no focal deficits <Susu Beauchamp NP - Last Filed: 05/09/21 15:57> Objective Data Current Medications Generic Name Dose Route Start Last Admin Trade Name Freq PRN Reason Stop Dose Admin Acetaminophen 650 mg 05/08/21 12:34 05/09/21 05:39 Acetaminophen 325 Mg Tablet PO 650 mg Q6H PRN Administration Pain, Mild (Pain Scale 1-3) Clotrimazole 1 appl 05/08/21 21:00 05/08/21 20:49 Clotrimazole 1 % Vaginal Cream 45 Gm Tube VAGINAL 05/14/21 21:01 1 appl BEDTIME LUIS ALFREDO Administration Famotidine 20 mg 05/08/21 21:00 05/09/21 08:18 Famotidine/Pf 20 Mg/2 Ml Vial IVPUSH 20 mg BID LUIS ALFREDO Administration Dextrose/Lactated Ringer's 1,000 mls @ 100 mls/hr 05/08/21 12:45 05/09/21 15:40 D5lr IVCONT 0 mls/hr .Q10H LUIS ALFREDO Infusion Ceftriaxone Sodium 1 gm/ 50 mls @ 100 mls/hr 05/08/21 14:00 05/09/21 15:40 Sodium Chloride IV 100 mls/hr Q24H LUIS ALFREDO Administration Ondansetron HCl 4 mg 05/08/21 12:34 05/09/21 15:40 Ondansetron Hcl 4 Mg/2 Ml Vial IVPUSH 4 mg Q8H PRN Administration Nausea and Vomiting Sodium Chloride 3 ml 05/08/21 16:00 05/09/21 15:40 0.9 % Sodium Chloride Flush 3 Ml Syringe IVFLUSH Not Given QSHIFT LUIS ALFREDO <Susu Beauchamp NP - Last Filed: 05/09/21 15:57> Labs CBC & Chem 7: : 05/09/21 05:31 05/09/21 05:31 <Susu Beauchamp NP - Last Filed: 05/09/21 15:57> Labs: Laboratory Results - last 24 hr 05/08/21 05/09/21 05/09/21 02:41 05:31 05:31 MCV 87.1 MCH 31.1 MCHC 35.7 H RDW 11.5 Plt Count 194 MPV 9.8 Immature Gran % (Auto) 0.6 H Neut % (Auto) 56.6 Lymph % (Auto) 26.8 [place] % (Auto) 11.7 H Eos % (Auto) 4.3 H Baso % (Auto) 0.0 Lymph # (Auto) 0.9 L [place] # (Auto) 0.4 Eos # (Auto) 0.2 Baso # (Auto) 0.0 Abs Immat Gran (auto) 0.02 Absolute Neuts (auto) 2.0 Absolute Nucleated RBC 0.000 Nucleated RBC % (auto) 0.0 Anion Gap 12 Estim Creat Clear Calc 125.7 Estimated GFR > 60 Random Glucose 84 Calcium 8.6 TSH 0.14 L Free T4 1.09 Urine Opiates Screen Not Detected Ur Barbiturates Screen Not Detected Ur Phencyclidine Scrn Not Detected Ur Amphetamines Screen Not Detected U Benzodiazepines Scrn Not Detected Urine Cocaine Screen Not Detected U Marijuana (THC) Screen Not Detected <Susu Beauchamp NP - Last Filed: 05/09/21 15:57> Microbiology Microbiology Results: Microbiology 05/08/21 Unknown Urine clean catch - Urine more top Urine Culture - Final No growth. 05/08/21 01:03 Vaginal Trichomonas Preparation - Final <Susu Beauchamp NP - Last Filed: 05/09/21 15:57> Progress Note: A&P (1) test positive: Status: Acute <Susu Beauchamp NP - Last Filed: 05/09/21 15:57> Assessment and Plan: 20-year-old woman placed on observation for hyperemesis gravidarum. Was recently discharged for the same. no electrolyte abnormalities noted. Hyperemesis gravidarum. Still with some nausea Seen and evaluated by OBGYN recommendation to treat with antiemetic, will start was Zofran, IV fluids and IV Pepcid Vaginal spotting repeat ultrasound , most recent ultrasound on 05/05 was normal Possible vaginal yeast infection Clotrimazole intravaginally at bedtime for 7 days DVT prophylaxis with early ambulation, low risk attending Dr. Rios full code <Susu Beauchamp NP - Last Filed: 05/09/21 15:57> Quality Stroke Does the patient have a stroke diagnosis?: No <Susu Beauchamp NP - Last Filed: 05/09/21 15:57> VTE Prior VTE?: No <Susu Beauchamp NP - Last Filed: 05/09/21 15:57> VTE Risk Level:: Medical - moderate - high <Susu Beauchamp NP - Last Filed: 05/09/21 15:57> VTE Device Contraindication: Treatment Not Indicated <Susu Beauchamp NP - Last Filed: 05/09/21 15:57> VTE Drug Contraindication: Treatment Not Indicated <Susu Beauchamp NP - Last Filed: 05/09/21 15:57>
[2021-05-09 19:51] VITALS: BP 118/63; PULSE 62; RESP 18; TEMP 37.2; O2SAT 100
[2021-05-09] MEDS: Clotrimazole 1 % Vaginal Cream 45 GM TUBE 1 APPL VAGINAL (20:50)
[2021-05-09] MEDS: 0.9 % Sodium Chloride Flush 3 ML SYRINGE IVFLUSH (20:55)
[2021-05-09 23:13] VITALS: BP 103/51; PULSE 67; RESP 18; TEMP 36.8; O2SAT 100
[2021-05-10 03:43] VITALS: BP 119/58; PULSE 54; RESP 18; TEMP 36.6; O2SAT 100
[2021-05-10] MEDS: Dextrose 5 % and Lactated Ring 1,000 ML 100 ML IVCONT (05:50)
[2021-05-10 07:28] VITALS: BP 107/55; PULSE 58; RESP 20; TEMP 36.7; O2SAT 99
[2021-05-10 09:07] LABS: Triiodothyronine T3 Total 126 ng/dL (86-192)
[2021-05-10 11:43] VITALS: BP 111/58; PULSE 84; RESP 18; TEMP 37; O2SAT 100
--- NOTE | 2021-05-10 14:56 | PM.IMPN ---
Subjective Subjective Date of Service: 05/11/21 Interval History: Follow up hyperemesis Nausea has improved encouraged OOB right arm pain and swelling Physical Exam Vital Signs: Vital Signs: Last Vital Signs Temp 98.6 F 05/10/21 11:43 Pulse 84 05/10/21 11:43 Resp 18 05/10/21 11:43 BP 111/58 L 05/10/21 11:43 Pulse Ox 100 05/10/21 11:43 Body Mass Index 27.8 Appearing in no acute distress LS CTA heart regular rate rhythm, clear S1, S2 positive bowel sounds, abdomen is soft, nontender neuro patient is alert x3, no focal deficits RUE with edema and erythema Objective Data Current Medications Generic Name Dose Route Start Last Admin Trade Name Freq PRN Reason Stop Dose Admin Acetaminophen 650 mg 05/08/21 12:34 05/09/21 05:39 Acetaminophen 325 Mg Tablet PO 650 mg Q6H PRN Administration Pain, Mild (Pain Scale 1-3) Clotrimazole 1 appl 05/08/21 21:00 05/09/21 20:50 Clotrimazole 1 % Vaginal Cream 45 Gm Tube VAGINAL 05/14/21 21:01 1 appl BEDTIME LUIS ALFREDO Administration Dextrose/Lactated Ringer's 1,000 mls @ 100 mls/hr 05/08/21 12:45 05/10/21 14:28 D5lr IVCONT Infused .Q10H LUIS ALFREDO Infusion Promethazine HCl 25 mg 05/10/21 15:00 Promethazine Hcl 25 Mg Tablet PO Q4H LUIS ALFREDO Sodium Chloride 3 ml 05/08/21 16:00 05/10/21 07:28 0.9 % Sodium Chloride Flush 3 Ml Syringe IVFLUSH Not Given QSHIFT [facility] Labs CBC & Chem 7: 05/11/21 05:18 05/09/21 05:31 Labs: Laboratory Results - last 24 hr 05/09/21 05:31 Total T3 126 Microbiology Microbiology Results: Microbiology 05/08/21 Unknown Urine clean catch - Urine more top Urine Culture - Final No growth. 05/08/21 01:03 Vaginal Trichomonas Preparation - Final Progress Note: A&P (1) Hyperemesis gravidarum: Status: Acute (2) test positive: Status: Acute Assessment and Plan: 20-year-old woman placed on observation for hyperemesis gravidarum. Was recently discharged for the same. no electrolyte abnormalities noted. Infiltrations. RUE likely secondary to IV ultrasound to r/o DVT Warm compress Hyperemesis gravidarum. Has improved some Switch to oral promethazine encourage oral intake Seen and evaluated by OBGYN recommendation to treat with antiemetic. Initially treated with Zofran, switched to phenergan Vaginal spotting repeat ultrasound normal Vaginal yeast infection and bacterial vaginosis Discussed with OBGYN rec: Clotrimazole intravaginally at bedtime for 7 days Oral flagyl 500mg BID DVT prophylaxis with early ambulation, low risk attending Dr. Vivar full code Quality Stroke Does the patient have a stroke diagnosis?: No VTE Prior VTE?: No VTE Risk Level:: Medical - moderate - high VTE Device Contraindication: Treatment Not Indicated VTE Drug Contraindication: Treatment Not Indicated
[2021-05-10 15:01] VITALS: BMI 27.8
--- NOTE | 2021-05-10 15:07 | MHC.CLN ---
RE: CONSULT SEE CLINICAL NUTRITION ASSESSMENT
[2021-05-10 15:39] VITALS: BP 108/58; PULSE 72; RESP 15; TEMP 36.6; O2SAT 99
--- NOTE | 2021-05-10 15:46 | HE.PHANOTE ---
RE: Metronidazole in Discussed the use of metronidazole in this patient with BV during the first trimester (patient is 8 weeks ). The association between symptomatic BV and adverse OB outcomes is well documented. Treatment has potential benefits in high risk/symptomatic patients, with little clinical evidence of teratogenicty. Per Dr. Gan, 500mg BID for 7 days. Thanks Roque
[2021-05-10] MEDS: Promethazine HCL 25 MG TABLET PO ×2 (15:59→21:18)
[2021-05-10] MEDS: metroNIDAZOLE 500 MG TABLET PO (15:59)
[2021-05-10 20:00] VITALS: BP 102/56; PULSE 78; RESP 15; TEMP 37.3; O2SAT 97
--- NOTE | 2021-05-10 20:36 | PM.EVENT ---
Event Note Date of Service: 05/10/21 Event Note: Venous doppler showed cephalic and brachial deep venous throbosis. pt started on lovenox treatment
[2021-05-10] MEDS: Enoxaparin Sodium 80 MG/0.8 ML SYRINGE 65 MG SUBCUT (21:13)
[2021-05-10 21:19] LABS: Hematocrit 30.5 % (37-47); Hemoglobin 11.1 g/dl (12.0-16.0); Mean Corpuscular HGB Conc 36.4 g/dl (31.0-35.0); Mean Corpuscular Volume 87.9 fL (80-98); Mean Platelet Volume 9.4 fL (9.4-12.3); Platelet Count 185 X10*3/uL (160-400); Red Blood Count 3.47 X10*6/uL (4.20-5.50); Red Cell Distribution Width 11.7 % (11.0-16.0); White Blood Count 5.8 X10*3/uL (4.8-10.8)
[2021-05-10 21:25] LABS: INTERNATIONAL NORM RATIO 1.1 (0.9-1.1)
[2021-05-10 21:27] LABS: Partial Thromboplastin Time 31.2 SEC (24.1-38.0)
[2021-05-10 23:01] VITALS: BP 119/62; PULSE 79; RESP 18; TEMP 37; O2SAT 100
[2021-05-11] MEDS: metroNIDAZOLE 500 MG TABLET PO ×2 (02:59→14:17)
[2021-05-11 03:11] VITALS: BP 114/60; PULSE 71; RESP 18; TEMP 36.7; O2SAT 97
[2021-05-11 05:56] LABS: Hematocrit 31.3 % (37-47); Hemoglobin 11.2 g/dl (12.0-16.0); Mean Corpuscular HGB Conc 35.8 g/dl (31.0-35.0); Mean Corpuscular Hemoglobin 31.1 pg (27.0-33.0); Mean Corpuscular Volume 86.9 fL (80-98); Mean Platelet Volume 9.4 fL (9.4-12.3); Platelet Count 200 X10*3/uL (160-400); Red Cell Distribution Width 11.5 % (11.0-16.0); White Blood Count 4.9 X10*3/uL (4.8-10.8)
[2021-05-11 08:00] VITALS: BP 116/58; PULSE 72; RESP 20; TEMP 36.8; O2SAT 98
[2021-05-11] MEDS: Promethazine HCL 25 MG TABLET PO (08:12)
[2021-05-11] MEDS: Enoxaparin Sodium 80 MG/0.8 ML SYRINGE 65 MG SUBCUT ×2 (08:13→18:47)
--- NOTE | 2021-05-11 09:44 | PM.HEMONCCN ---
Subjective - Subjective Chief complaint: Rt arm pain and swelling Patient: new to practice Consult date: 05/11/21 Primary Care Provider: DANNA BONILLA MD HPI - Consult Narrative Reason for consult: Right upper extremity DVT in Narrative: Lanny Jin is a 20 year old female who is admitted to [facility] with intractable nausea and vomiting during . She had a recent prior admission for similar problem and received IV hydration as well as IV antiemetics. She was getting ready to be discharged when she complained of pain and swelling in her right arm. She had an IV line inserted in that arm and that was removed as it felt there was some infiltration of the line. Her Doppler performed revealed thrombosis of brachial and cephalic veins. She has been started on low-molecular weight heparin, Lovenox 1 mg/kg b.i.d.. She reports some improvement in the pain. She denies any pleuritic chest pain, cough or shortness of breath. No prior history or family history of thromboembolism. She is not a smoker. Review of Systems - Constitutional Reports no additional constitutional complaints - Cardiovascular Reports no additional cardiovascular complaints - Respiratory Reports no additional respiratory complaints - Gastrointestinal Reports no additional gastrointestinal complaints, Reports nausea, Reports vomiting [facility] Medical History: Medical History (Last Reviewed 05/08/21 @ 19:35 by Antonette Perry RN) Nausea & vomiting Social History: Social History (Last Reviewed 05/08/21 @ 10:38 by Marco Enriquez MD) Living Situation History: Household Members: Family Housing: House Do you presently have visiting nurse or other home services: No Alcohol History: Alcohol intake: never Tobacco History: Patient Tobacco Use Status: Never used Tobacco Substance Use History: Use of substances other than those prescribed or required for medical reasons: No Currently Displaying Signs/Symptoms of Drug Intoxication Withdrawal: No Domestic Abuse History: Have you been hit, kicked, punched, or otherwise hurt by someone within the past year? If so, by whom?: No Do you feel safe in your current relationship?: Yes Is there a partner from a previous relationship who is making you feel unsafe now?: No Are you made to feel afraid or neglected: No Advance Directives: Advance Directives: No Advance Directives Information Provided: Advance Directives Information Provided comment: declined Homicidal Assessment: Do you have thoughts of harming others: None Do you have a plan to hurt others: No Plan Nutrition Assessment: Recently lost weight without trying: Yes How much weight loss: 14-23 pounds Eating poorly because of decreased appetite: Yes Nutrition screen score: 5 Nutrition Risks: Acute nausea or vomiting Patient : Yes : No Poor oral hygiene: No Occupation Assessmet: service: No Current occupational status: employed Sex/Gender Assessment: Gender identity: female Home Medications and Allergies Current Medications: Current Medications Generic Name Dose Route Start Last Admin Trade Name Freq PRN Reason Stop Dose Admin Acetaminophen 650 mg 05/08/21 12:34 05/09/21 05:39 Acetaminophen 325 Mg Tablet PO 650 mg Q6H PRN Administration Pain, Mild (Pain Scale 1-3) Clotrimazole 1 appl 05/08/21 21:00 05/10/21 21:19 Clotrimazole 1 % Vaginal Cream 45 Gm Tube VAGINAL 05/14/21 21:01 Not Given BEDTIME [facility] Enoxaparin Sodium 65 mg 05/10/21 20:45 05/11/21 08:13 Enoxaparin Sodium 80 Mg/0.8 Ml Syringe 1 mg/kg (65 mg) 65 mg SUBCUT Administration Q12H [facility] Metronidazole 500 mg 05/10/21 15:00 05/11/21 02:59 Metronidazole 500 Mg Tablet PO 500 mg Q12H LUIS ALFREDO Administration Promethazine HCl 25 mg 05/10/21 21:00 05/11/21 08:12 Promethazine Hcl 25 Mg Tablet PO 25 mg BID LUIS ALFREDO Administration Sodium Chloride 3 ml 05/08/21 16:00 05/11/21 08:17 0.9 % Sodium Chloride Flush 3 Ml Syringe [facility]USH [facility] Medications Medication Instructions Recorded Confirmed Type WesTab Plus 1 tab PO DAILY 05/05/21 05/08/21 History [id number] acid-B6 1 ea PO DAILY 05/08/21 05/08/21 History [Citranatal B-Calm (Fe Gluc)] Allergies Allergy/AdvReac Type Severity Reaction Status Date / Time No Known Allergies Allergy Verified 05/10/21 09:22 [No Known Allergies*] Physical Exam Vital signs: Vital Signs Temp 98.2 F 05/11/21 08:00 Pulse 72 05/11/21 08:00 Resp 20 05/11/21 08:00 BP 116/58 L 05/11/21 08:00 Pulse Ox 98 07/13/21 08:00 Intake & Output 05/10/21 05/11/21 05/11/21 18:59 06:59 18:59 Intake Total 1013.583 / 2012.583 1000 / 2012.583 Output Total 200 / 200 Balance 813.583 / 5775.990 7890 / 1813.583 Urine Output (Average ml/kg/hr) 0.25 0.25 Intake: Intake, Oral Amount 100 / 1100 1000 / 1100 Intake, IV Amount 913.583 / 913.583 Promethazine HCL 6.25 mg In 0.9 50.25 / 50.25 % Sodium Chloride 50 ml @ 201 mls/hr IV Q6H LUIS ALFREDO Rx#: [id number] Dextrose 5 % and Lactated Ring 863.333 / 863.333 1,000 ml @ 100 mls/hr IVCONT . Q10H LUIS ALFREDO Rx#:[id number] Output: Output, Urine Amount 200 / 200 Other: Meal Refused No NPO No Breakfast % Eaten 25% Lunch % Eaten 25% Dinner % Eaten 100% Number of Incontinent Voids 0 Number of Unmeasured Voids 3 Urine Bathroom Urine Color Yellow Radha Weight 67 kg Weight 67 kg - Constitutional Present: no acute distress - Routine HEENT Exam Head: Present: normal inspection Eye: Present: EOMI - Routine Neck Exam Present: full ROM - Routine Respiratory Exam Present: CTAB - Routine Cardiovascular Exam Cardiovascular: Present: RRR, S1, S2 - Routine Abdominal Exam Present: soft - Routine Extremities Exam Absent: calf tenderness Comments: Right arm swelling noted. No significant erythema or tenderness. Good pulses present. Hem/Onc Consult Result - Labs CBC & Chem 7: 05/11/21 05:18 05/09/21 05:31 Labs: Short CBC 05/10/21 05/11/21 Range/Units 21:08 05:18 WBC 5.8 4.9 (4.8-10.8) X10*3/uL Hgb 11.1 L 11.2 L (12.0-16.0) g/dl Hct 30.5 L 31.3 L (37-47) % Plt Count 185 200 (160-400) X10*3/uL Assessment and Plan (1) DVT (deep vein thrombosis) in Status: Acute 1. This is a 20-year-old woman with her right upper extremity DVT in 1st trimester of 1st . Ultrasound revealed occlusive thrombus in the cephalic and proximal brachial veins. This occurred in the setting of IV line placement during . She has been appropriately started on low-molecular weight heparin, Lovenox 1 mg/kg subQ b.i.d.. As per recommendation from [employer] as well as [employer], for women with acute DVT, anticoagulation should be continued throughout and for at least 6 weeks . Dosing can be twice daily or once a day dosing. Warfarin and direct oral anticoagulants are contraindicated during . Monitoring with anti Xa levels is not recommended. I recommend that we continue twice daily dosing for now, she will be transitioned to once daily dosing after a few weeks. She will have to be transition to unfractionated heparin closer to her delivery. She will have to be monitored closely with CBC/platelet counts. There is no family history of thromboembolism and thrombophilia workup is not recommended. Follow-up in hematology clinic upon discharge. Thank you.
[2021-05-11 11:55] VITALS: BP 118/56; PULSE 80; RESP 18; TEMP 37; O2SAT 98
[2021-05-11 15:34] VITALS: BP 102/52; PULSE 104; RESP 18; TEMP 36.9; O2SAT 98
--- NOTE | 2021-05-11 16:03 | PM.DS ---
DS: Providers Provider Date of Service: 05/11/21 <Susu Beauchamp NP - Last Filed: 05/11/21 16:10> Date of admission: 05/08/21 12:34 <Susu Beauchamp NP - Last Filed: 05/11/21 16:10> Date of discharge: 05/11/21 <Susu Beauchamp NP - Last Filed: 05/11/21 16:10> Primary care physician: DANNA BONILLA MD <Susu Beauchamp NP - Last Filed: 05/11/21 16:10> Admitting clinician: Darío Vivar <Susu Beauchamp NP - Last Filed: 05/11/21 16:10> Attending physician on admission: Darío Vivar <Susu Beauchamp NP - Last Filed: 05/11/21 16:10> Consults: 05/08/21 08:53 Consult to Obstetrics / Gynecology Routine Consulting Provider: Marco Enriquez Reason for consultation: hyperemesis grav Has provider been notified: No 05/11/21 08:26 Consult to Hematology / Oncology Routine Consulting Provider: Devi Mendez Reason for consultation: right arm dvt, 8 weeks gestation Has provider been notified: No <Susu Beauchamp NP - Last Filed: 05/11/21 16:10> Attending physician on discharge: Darío Vivar <Susu Beauchamp NP - Last Filed: 05/11/21 16:10> Discharging clinician: Susu Beauchamp <Susu Beauchamp NP - Last Filed: 05/11/21 16:10> DS: Diagnosis Discharge Diagnosis (1) DVT (deep vein thrombosis) in : Status: Acute <Susu Beauchamp NP - Last Filed: 05/11/21 16:10> (2) Hyperemesis gravidarum: Status: Acute <Susu Beauchamp NP - Last Filed: 05/11/21 16:10> (3) Bacterial vaginal infection: Status: Acute <Susu Beauchamp NP - Last Filed: 05/11/21 16:10> (4) Candidal vulvovaginitis: Status: Acute <Susu Beauchamp NP - Last Filed: 05/11/21 16:10> DS: Medications Discharge Medications Home Medications: Home Medications Medication Instructions Recorded Confirmed WesTab Plus 1 tab PO DAILY 05/05/21 05/08/21 Citranatal B-Calm (Fe Gluc) 1 ea PO DAILY 05/08/21 05/08/21 Previous Rx's Medication Instructions Recorded promethazine 25 mg NJ Q6H PRN #20 ea 05/05/21 famotidine 20 mg PO BID PRN #30 tab 05/07/21 clotrimazole 1 appl VAGINAL BEDTIME #45 g 05/11/21 enoxaparin 65 mg SUBCUT Q12H 30 Days #39 ml 05/11/21 metronidazole 500 mg PO Q12H #10 tab 05/11/21 promethazine 25 mg PO BID PRN #60 tab 05/11/21 <Susu Beauchamp NP - Last Filed: 05/11/21 16:10> DS: Summary Hospital Course Hospital Course: HP as per admitting provider This 20 yo F (reports LMP 02/06 -- but OB note from 04/15 documents 03/08) who presents to the hospital with complaints of bilateral lower quadrant pain and vomiting. She reports that over the last several days she has had nausea with vomiting (non-bloody/non-bilious) with subsequent abdominal soreness. She denies any fevers or chills. She denies any diarrhea. She endorses that no one else has similar symptoms. She denies any vaginal bleeding or discharge. She denies any urinary frequency /urgency. Denies any dysuria. She denies any marijuana use. She reports that [place] [facility] [place], she underwent basic work up including cbc, bmp, ua, ultrasound. Her CBC revealed mild anemia, her chem was basically within normal limits. UA showed trace bacteria. Her ultrasound revealed a single intrauterine with EGA 8weeks 2 days +/- 4 days. ANDREW by ultrasound was 12/13/2021 +/- 4 days. She was given multiple rounds to antiemetics and IVF without improvement in her symptoms. She failed her PO challenged and will be subsequently admitted for further management . Hyperemesis gravidarum. Second admission for hyperemesis. Initially treated with Zofran with continued nausea, changed to Phenergan with good effect. Patient has been able to eat and drink with still some nausea but no vomiting. She is currently 8 weeks gestation and will go home on as needed promethazine. She should follow-up with her OBGYN. DVT . Patient had an IV in her right AC. Unfortunately the IV infiltrated and patient complained of pain and swelling to the right arm. venous Doppler ultrasound showed occlusive thrombus in the cephalic vein and proximal brachial veins. Patient was seen and evaluated by Hematology. She was started on subcutaneous Lovenox twice daily. She will follow up with Hematology as an outpatient and will be on Lovenox the remainder of her and several weeks thereafter. She will be taught along with her aunt to inject the Lovenox. Bacterial vaginosis . Treated with Flagyl 500 mg b.i.d. for 7 days. Complete course at home Vaginal yeast infection. Treated with clotrimazole intravaginally for 7 days. Complete course at home Attending Attestation: Patient seen and examined independently and I was present during martinez portion of E/M service. Agree with Tristin Beauchamp NP's history, physical, assessment, and plan. Admitted for hyperemesis gravdiarum. Treated with anti-emetics. Tolerating solids > 24 hours prior to d/c. Course comlicated by upper ext. dvt in the setting of IV infiltration. Started on lovenox 1mg/kg. Hematology involved. Patient and family taught administration of lovenox subcut. Pt educated to on the need for compliance with lovenox and not to miss even 1 dose. Informed re: the possibility of PE if not compliant. She expressed understanding. <Susu Beauchamp NP - Last Filed: 05/11/21 16:10> Time Spent with Patient Time attestation: Total time spent providing and/or coordinating discharge services: <Susu Beauchamp NP - Last Filed: 05/11/21 16:10> Discharge coordination time: Greater than 30 minutes <Susu Beauchamp NP - Last Filed: 05/11/21 16:10> Quality: Stroke Does the patient have a stroke diagnosis?: No <Susu Beauchamp NP - Last Filed: 05/11/21 16:10> Physical Exam Vital Signs: Vital Signs: Last Vital Signs Temp 98.4 F 05/11/21 15:34 Pulse 104 H 05/11/21 15:34 Resp 18 05/11/21 15:34 BP 102/52 L 05/11/21 15:34 Pulse Ox 98 05/11/21 15:34 Body Mass Index 27.8 <Susu Beauchamp NP - Last Filed: 05/11/21 16:10> Appearing in no acute distress head is normocephalic atraumatic eyes pupils are PERRLA sclera is anicteric mouth throat mucous membranes are intact and moist neck is supple no lymphadenopathy, no JVD noted lung sounds are clear to auscultation heart regular rate rhythm, clear S1, S2 positive bowel sounds, abdomen is soft, nontender neuro patient is alert x3, no focal deficits <Susu Beauchamp NP - Last Filed: 05/11/21 16:10> DS: Data Data Completed and Pending Labs on day of discharge: Laboratory Results - last 24 hr 05/10/21 05/10/21 05/11/21 21:08 21:08 05:18 WBC 5.8 4.9 RBC 3.47 L 3.60 L Hgb 11.1 L 11.2 L Hct 30.5 L 31.3 L MCV 87.9 86.9 MCH 32.0 31.1 MCHC 36.4 H 35.8 H RDW 11.7 11.5 Plt Count 185 200 MPV 9.4 9.4 Absolute Nucleated RBC 0.000 0.000 Nucleated RBC % (auto) 0.0 0.0 PT 13.0 INR 1.1 APTT 31.2 <Susu Beauchamp NP - Last Filed: 05/11/21 16:10> Discharge Plan Discharge Anticipated Discharge Date/Time: 05/11/21 15:49 <Susu Beauchamp NP - Last Filed: 05/11/21 16:10> Patient Disposition: Home, Self-Care <Susu Beauchamp NP - Last Filed: 05/11/21 16:10> Discharge Diagnosis: Hyperemesis gravidarum Right upper extremity deep venous thrombosis bacterial vaginosis yeast infection <Susu Beauchamp NP - Last Filed: 05/11/21 16:10> Hyperemesis gravidarum Right upper extremity deep venous thrombosis bacterial vaginosis yeast infection <Darío Vivar MD - Last Filed: 05/11/21 17:39> Referrals: Devi Mendez MD [Physician] - 1 Week (follow up for DVT workup and medication refill ) Danna Bonilla MD [Primary Care Provider] - 1 Week Marco Enriquez MD [Physician] - None <Susu Beauchamp NP - Last Filed: 05/11/21 16:10> Discharge Medications: New clotrimazole 1 % Cream 1 appl vaginal BEDTIME Qty: 45 RF: 0 metronidazole 500 mg Tablet 500 mg PO Q12H Qty: 10 RF: 0 promethazine 25 mg Tablet 25 mg PO BID PRN (Reason: nausea and vomiting) Qty: 60 RF: 0 enoxaparin 80 mg/0.8 mL Syringe 65 mg subcut Q12H 30 Days Qty: 39 RF: 0 Continued promethazine 25 mg suppository 25 mg NJ Q6H PRN (Reason: nausea and vomiting) Qty: 20 RF: 0 WesTab Plus 27 mg iron- 1 mg tablet 1 tab PO DAILY RF: 0 famotidine 20 mg tablet 20 mg PO BID PRN (Reason: nausea and vomiting) Qty: 30 RF: 0 Citranatal B-Calm (Fe Gluc) 20 mg iron-1 mg -25 mg/25 mg tablets, sequential 1 ea PO DAILY RF: 0 Discontinued nitrofurantoin monohyd/m-cryst [Macrobid] 100 mg capsule 100 mg PO BID Qty: 6 RF: 0 metoclopramide HCl [Reglan] 10 mg tablet 10 mg PO TIDAC Qty: 30 RF: 0 <Susu Beauchamp NP - Last Filed: 05/11/21 16:10> Discharge Orders: Discharge Order (Routine); Ordered 05/11/21 Ordered By: Susu Beauchamp <Susu Beauchamp NP - Last Filed: 05/11/21 16:10> Diet: advance to usual diet <Susu Beauchamp NP - Last Filed: 05/11/21 16:10> advance to usual diet <Darío Vivar MD - Last Filed: 05/11/21 17:39> Activity on Discharge: As tolerated <Susu Beauchamp NP - Last Filed: 05/11/21 16:10> As tolerated <Darío Vivar MD - Last Filed: 05/11/21 17:39> Stand Alone Forms: Patient Portal Discharge page <Susu Beauchamp NP - Last Filed: 05/11/21 16:10> Activity Restrictions/Additional Instructions: Continue taking your antibiotics for your UTI You also have a yeast infection, and likely Trichomonas, Flagyl is an antibiotic, take as prescribed, in addition use miconazole cream You need to follow-up with her OBGYN <Susu Beauchamp NP - Last Filed: 05/11/21 16:10> Care Plan Goals: resolution of hyper emesis <Susu Beauchapm NP - Last Filed: 05/11/21 16:10> Health Concerns: hyperemesis gravidarum Right upper extremity deep venous thrombosis bacterial vaginosis yeast infection <Susu Beauchamp NP - Last Filed: 05/11/21 16:10> Plan of Treatment: You have been diagnosed with deep venous thrombosis to your right upper extremity. The plan is to take subcutaneous Lovenox twice daily. Please follow-up with Oncology, Dr. Mendez for medication refills and further workup regarding the deep venous thrombosis For your hyperemesis gravidarum, take promethazine as needed. Increase oral intake. Drink plenty of water and rest. For your vaginal yeast infection complete the course of clotrimazole for total of 7 days For bacterial vaginosis complete the course of Flagyl for total of 7 days. <Susu Beauchamp NP - Last Filed: 05/11/21 16:10> Assessment: See discharge summary <Susu Beauchamp NP - Last Filed: 05/11/21 16:10> Patient Instructions: Enoxaparin (By injection), Deep Vein Thrombosis (ED) <Susu Beauchamp NP - Last Filed: 05/11/21 16:10>
--- NOTE | 2021-05-11 18:59 | PC.NURSE ---
Reviewed how to inject lovenox with pt and pt aunt. Aunt Verbalized understanding and able to administered lovenox to pt. Aunt has administered injections before. Reviewed discharge instructions with pt. and aunt. Verbalized understanding
== END 2021-05-11 19:28 | disposition home or self-care (01) ==
LOC: HO.ED 22:23 → HO.IMC 05-08 13:23
PROVIDERS: Internal Medicine; Physician Assistant; Admitting Provider Nurse Practitioner Acute Care; Emergency Provider Emergency Medicine; PCP Pediatrics; Visit Provider Family Medicine
DX: O22.31 Deep phlebothrombosis in pregnancy, first trimester (principal); I82.290 Acute embolism and thrombosis of other thoracic veins; O21.0 Mild hyperemesis gravidarum; O23.591 Infection of other part of genital tract in pregnancy, first trimester; B37.3 Candidiasis of vulva and vagina; R82.71 Bacteriuria; B96.89 Other specified bacterial agents as the cause of diseases classified elsewhere; O26.851 Spotting complicating pregnancy, first trimester; Z3A.08 8 weeks gestation of pregnancy; Z79.02 Long term (current) use of antithrombotics/antiplatelets; Z79.899 Other long term (current) drug therapy
CPT/HCPCS: 36415; 76816; 80048; 80076; 80307; 81001; 81003; 83690; 83735; 84439; 84443; 84480; 84702; 85025; 85027; 85610; 85730; 87086; 87480; 87491; 87510; 87591; 87660; 93971; 96361; 96365; 96374; 96375; 99219; 99285; J0696; J1200; J1650; J2405; J2550; J2765